=== PATIENT | male | born 1955 | race Caucasian/White ===

== ENCOUNTER 2017-11-06 12:34 | Day surgery (SDC) | payer OTHER, SELFPAY ==
[2017-11-06] VITALS (13 sets, daily range): BP systolic 108–136; BP diastolic 54–85; PULSE 43–56; RESP 16–18; TEMP 36.1–36.3; O2SAT 94–100; BMI 20.8
[2017-11-06 10:12] LABS: Hematocrit 42.4 % (40-54); Hemoglobin 13.9 g/dl (13.0-16.5); Mean Corp Hgb Conc 32.8 g/gl (32-36); Mean Corpuscular Volume 97.5 fL (80-94); Mean Platelet Vol. 10.2 fl (6.2-12.0); Platelet Count 161 K/mm3 (150-450); RBC Distribution Width CV 13.2 % (11.6-14.6); RBC Distribution Width SD 47.3 fl (35.1-43.9); Red Blood Count 4.35 M/mm3 (4.6-6.2); Scan Indicated on CBC? Y/N NO; White Blood Count 5.6 K/mm3 (4.4-11.0)
[2017-11-06 10:33] LABS: Anion Gap 6 (5-15); BUN 19 mg/dL (7-18); BUN/Creat Ratio 17.8 RATIO (10-20); Calcium,Total 9.3 mg/dL (8.5-10.1); Chloride 105 mmol/L (98-107); Creatinine, Serum 1.07 mg/dL (0.70-1.30); EST Glomerular Filtration Rate 74 mL/min (>60); Est Glom Filt Rate - Afr Amer 89 mL/min (>60); Estimated Creatinine Clearance 68.86 ml/min; Glucose 92 mg/dL (74-106); Potassium 4.2 mmol/L (3.5-5.1); Sodium Level 141 mmol/L (136-145); Thyroid Stim Hormone (TSH) 0.68 uIU/mL (0.358-3.74)
--- NOTE | 2017-11-06 11:15 | HERN_PTH ---
PATIENT: CHAN SANTIAGO LOC: [facility] U#:[id number] AGE/SX: 62/M ROOM: RE11/06/[address]: Dr. Mikey Plata MD : [id number] BED: DIS: 11/06/2017 SPEC #: [id number] RECD: 11/06/17 15:17 STATUS: CHERYL GAIL #: [id number] SANDRA: 11/06/17 11:[address]: Mikey Plata DEPT: SURGICAL PATHOLOGY RECD BY: Adal Wang ENTERED: 11/07/17 10:16 SP TYPE: Hernia OTHR DR: Dr. Kemar Arroyo MD Tissues: HERNIA Procedures: Surgery Specimen Level II Surgery Specimen Level III HEADER OPERATION: Hernia, open, inguinal with mesh PRE-OP DIAGNOSIS: Right inguinal hernia TISSUE SUBMITTED: Right inguinal hernia sac and lipoma of cord MICROSCOPIC DIAGNOSIS Right inguinal hernia sac and lipoma of cord: Mesothelial-lined fibroadipose and fibroconnective tissue, consistent with hernia sac with reactive changes. Pieces of mature adipose tissue, consistent with lipoma. MANJULA:harish 11/08/17 MICROSCOPIC DESCRIPTION Slides are reviewed. GROSS DESCRIPTION Received in fixative is one container labeled with the patient's name and designated right inguinal hernia sac and lipoma of cord. The specimen consists of a piece of fibromembranous sac measuring 3 x 2 x 0.8 cm. Sections do not reveal any mass lesion. Also received are two pieces of adipose tissue measuring in aggregate 4 x 3.5 x 1 cm. Sections reveal yellow adipose cut surface without area of hemorrhage, necrosis or cystic degeneration. Security Test Engineer sections are submitted in two cassettes as follows: 1 ? fibromembranous tissue, 2 ? adipose tissue. / MANJULA:harish 11/07/17 TC:5 CPT: 20293, 23965
--- NOTE | 2017-11-06 12:14 | SUR.PREOP ---
pt told about cancelation. Called office- validation consultant at lunch. office will call with rescheduled time. instructed patient to call office by 1500 if no call from them
--- NOTE | 2017-11-06 12:53 | PCM.DC.GS ---
Discharge Diet: Light diet - advance as tolerated - if you have questions about your diet instructions, please talk to you doctor. Discharge Activity: May Not Drive - for 1 week or while taking narcotic pain medicine. May shower in (days): 1 Lifting Restrictions: 10 pounds Call your doctor if your incision/area has: Continuous Slow Oozing, Sudden Increased Bleeding, Increased Pain/ Swelling, Increased Redness, Foul Smelling Discharge Call your doctor if you observe: Fever of 101 or Higher Suture Line Care: Avoid Pulling/Pushing, Avoid Pinching/Bending Additional Dressing/Incision Instructions:: Change or remove dressing in 4 days. Leave steri-strips in place for 1 week. Allergies/Adverse Reactions: Allergies codeine Allergy (Verified 11/05/17 14:36) Unknown Medications to take at Discharge Aspirin 325 mg PO DAILY@0800 05/17/15 Infliximab [Remicade] 05/17/15 Levothyroxine [Synthroid] 100 mcg PO DAILY 05/17/15 Memantine HCl [Namenda Xr] 28 mg PO QHS 05/17/15 Metoprolol Tartrate [Lopressor (beta maddi)] 12.5 mg PO BID 05/17/15 Multivit-Min/Iron Fum/Folic AC [Shiut-Fmedhor-Pxqeiupc Tablet] 1 ea PO DAILY 05/17/15 Omeprazole [Prilosec] 20 mg PO DAILY 05/17/15 Tamsulosin HCl [Flomax] 0.4 mg PO DAILY 05/17/15 traZODone [Desyrel] 100 mg PO QHS 05/17/15 lisinopril 20 mg tablet 20 mg PO QDAY 10/28/17 Hydrocodone Bitart/Apap 5-325 [[place] 5MG-325MG] 1 tablet PO Q6H PRN PRN 2 Days #6 tablet 11/06/17 The following prescriptions were given: Hydrocodone Bitart/Apap 5-325 [[place] 5MG-325MG] 1 tablet PO Q6H PRN PRN 2 Days #6 tablet PRN Reason: Pain Primary Care Physician: Kemar Arroyo MD [Primary Care Provider] - Test Results: Test results from this visit will be discussed in further detail at your follow-up appointment, if applicable. Please Follow Up With: Mikey Plata MD - [phone] When: Call to make an appointment to be seen in about 10 days.
[2017-11-06] MEDS: Cefazolin 2 GM in 0.9% Normal Saline 100 ML IV (12:56)
[2017-11-06] MEDS: Bupivacaine Mpf 0.5% 30 ML VIAL (13:10)
--- NOTE | 2017-11-06 13:55 | PCM.OPRPT ---
Problem List (1) Inguinal hernia of right side without obstruction or gangrene Status: Acute Report of Operation Date of Procedure: 11/06/17 Pre-Operative Diagnosis: Right inguinal hernia Post-Operative Diagnosis: Indirect right inguinal hernia and cord lipoma Surgery/Procedure Performed:: Franklyn right inguinal herniorrhaphy with excision of cord lipoma Description of Surgical Findings:: Timeout and informed consent was obtained. 62-year-old gent was taken out room. Placed on the table. Underwent monitored anesthesia of 2 g given intravenous preoperatively. The right groin was sterilely prepped draped. 1% lidocaine mixed 50-50 with 0.5% Marcaine was used as a local anesthetic. A total of 16 cc was used. Local was instilled. A transverse incision was made in the right groin. Sharp dissection carried down through the substance tissue. Electrocautery was used for hemostasis. Circumferential control was obtained of the cord structures and a Migdalia placed. The external oblique was incised. Dissection was performed at the internal ring until a indirect sac was clearly identified. Hypertrophic cremasteric fibers were dissected free. The sac was dissected free it was high ligated with 3-0 Vicryl the sac was submitted. A cord lipoma was actually also identified in it she was high ligated with a 3-0 Vicryl. Dissection performed overlying the pubic tubercle. The transversalis fascia from the pubic tubercle to the internal ring was approximated running 3-0 Ethibond. A apron cover Bard mesh appreciate mesh lot number [id number] reference #[id number] expiry date 05/29/2022 was utilized. Details were somewhat trimmed it was wrapped around the internal ring was secured to itself with interrupted 3-0 Ethibond the mesh then nicely sat overlying the pubic tubercle direct and indirect. The tails were tucked beneath the external oblique. The mesh was secured in place with multiple interrupted 3-0 Ethibond excellent securement was achieved. The external oblique was approximated with a running 3-0 Vicryl. Skin edges proximate interrupted and running septic or 4-0 Monocryl. Steri-Strips Telfa and OpSite dressings applied. Sponge and instrument and needle counts were reported the surgeon be correct. Blood loss was minimal. Specimens hernia sac and cord lipoma. Drains none. Mikey Plata M.D., F.A.C.S. Type of Anesthesia:: Local MAC Anesthesiologist: Cecilio Alvarez
[2017-11-06] MEDS: HYDROcodone Bitartrate/Apap 5/325 Tablet PO (15:13)
== END 2017-11-06 15:58 | disposition home or self-care (01) ==
LOC: SDC 12:36 → AC 12:36
PROVIDERS: Family Provider Family Medicine; PCP Family Medicine; Visit Provider Surgery
PROC: (CPT 49505; principal; 2017-11-06 11:00)
DX: K40.90 Unilateral inguinal hernia, without obstruction or gangrene, not specified as recurrent (principal); I10 Essential (primary) hypertension; E03.9 Hypothyroidism, unspecified; E06.9 Thyroiditis, unspecified; K50.90 Crohn's disease, unspecified, without complications; M19.90 Unspecified osteoarthritis, unspecified site; K21.9 Gastro-esophageal reflux disease without esophagitis; N40.0 Benign prostatic hyperplasia without lower urinary tract symptoms; Z79.82 Long term (current) use of aspirin; Z79.899 Other long term (current) drug therapy
CPT/HCPCS: 49505; 36415; 80048; 84443; 85027; 88302; 88304; 93005; J7120; C1781; J2405

== ENCOUNTER 2018-01-13 10:31 | Emergency (ER) | payer OTHER, SELFPAY ==
[2018-01-13 10:32] VITALS: BP 146/92; PULSE 67; RESP 18; TEMP 36.6; O2SAT 99; BMI 22.7
--- NOTE | 2018-01-13 10:56 | ED.VISSUMM ---
- ER Visit Summary Date of Service: 01/13/18 Chief Complaint: Difficulty urinating History of Present Illness: The patient is a 62 M states that last week he was having fevers up to 103 and was diagnosed with a urinary tract infection (due to E. coli per him) and placed on Cipro. He is on Remicade for Crohn's disease. He has a history of BPH and takes Flomax and sees [facility] urology 1 time per year. He has never had urinary retention. He states that over the weekend he was only able to urinate small amounts. He states the fevers have resolved. He feels that his bladder does not empty. Physical Examination: Afebrile vital signs stable Gen: Well-nourished well-developed Head: Normocephalic atraumatic Eyes: Perrl EOMI ENT: TMs clear no rhinorrhea moist mucous membranes Neck: Supple no lymphadenopathy no JVD nontender CVS: Regular rate rhythm no murmurs normal S1-S2 Respiratory: No distress clear to auscultation bilaterally chest nontender Abdomen: Soft tender palpation in suprapubic region due to a distended bladder top of bladder palpable 2 cm below umbilicus normal bowel sounds no masses Back: Nontender Extremity: Nontender no edema Skin: Normal color no rash Neuro: alert orientated ?3 CN II-XII intact normal strength sensation reflexes gait cerebellar Psych: Normal affect normal mood Test Results: Bedside ultrasound confirmed urinary retention. CBC BMP and urinalysis were obtained. These were negative. Emergency Department Course and Treatment: Sanon catheter was placed. This will be transitioned to a leg bag. He will follow-up with his urologist later this week. Patient to continue his ciprofloxacin. Impression: 1. Acute urinary retention This note was generated with [employer] dictation software. It may contain incorrect words, spelling, and punctuation that were not noted in review of the chart prior to signing ED Disposition - Plan for ED Patient: Disposition: Home or Assisted Living Chief Complaint: Complaint Instructions: ED Retention Urinary Male Additional Instructions: Please call your urologist to arrange follow-up later this week
--- NOTE | 2018-01-13 11:01 | ED.DCSUM_ITS ---
- ER Visit Summary Date of Service: 01/13/18 Chief Complaint: Difficulty urinating History of Present Illness: The patient is a 62 M states that last week he was having fevers up to 103 and was diagnosed with a urinary tract infection (due to E. coli per him) and placed on Cipro. He is on Remicade for Crohn's disease. He has a history of BPH and takes Flomax and sees [facility] urology 1 time per year. He has never had urinary retention. He states that over the weekend he was only able to urinate small amounts. He states the fevers have resolved. He feels that his bladder does not empty. Physical Examination: Afebrile vital signs stable Gen: Well-nourished well-developed Head: Normocephalic atraumatic Eyes: Perrl EOMI ENT: TMs clear no rhinorrhea moist mucous membranes Neck: Supple no lymphadenopathy no JVD nontender CVS: Regular rate rhythm no murmurs normal S1-S2 Respiratory: No distress clear to auscultation bilaterally chest nontender Abdomen: Soft tender palpation in suprapubic region due to a distended bladder top of bladder palpable 2 cm below umbilicus normal bowel sounds no masses Back: Nontender Extremity: Nontender no edema Skin: Normal color no rash Neuro: alert orientated ?3 CN II-XII intact normal strength sensation reflexes gait cerebellar Psych: Normal affect normal mood Test Results: Bedside ultrasound confirmed urinary retention. CBC BMP and urinalysis were obtained. These were negative. Emergency Department Course and Treatment: Sanon catheter was placed. This will be transitioned to a leg bag. He will follow-up with his urologist later this week. Patient to continue his ciprofloxacin. Impression: 1. Acute urinary retention This note was generated with [employer] dictation software. It may contain incorrect words, spelling, and punctuation that were not noted in review of the chart prior to signing ED Disposition - Plan for ED Patient: Disposition: Home or Assisted Living Chief Complaint: Complaint Instructions: ED Retention Urinary Male Additional Instructions: Please call your urologist to arrange follow-up later this week
[2018-01-13 11:14] LABS: Absolute Lymphocyte Count 1.57 X10^3/ul (0.83-4.51); Basophil# 0.03 X10^3/uL; Basophil% 0.4 % (0-1); Eosinophil# 0.08 X10^3/uL; Eosinophils% 1.1 % (0-5); Hematocrit 40.1 % (40-54); Hemoglobin 13.2 g/dl (13.0-16.5); Lymphocyte # 1.57 X10^3/ul (4.0); Mean Corp Hgb Conc 32.9 g/gl (32-36); Mean Corpuscular Hgb 31.5 pg (27.0-32.0); Mean Corpuscular Volume 95.7 fL (80-94); Monocyte# 0.75 X10^3/uL; Monocyte% 10.1 % (0-10); Neutrophil # 4.97 X10^3/uL (2.7-7.7); Neutrophil % 66.6 % (47-70); Platelet Count 217 K/mm3 (150-450); RBC Distribution Width SD 45.6 fl (35.1-43.9); Red Blood Count 4.19 M/mm3 (4.6-6.2); White Blood Count 7.5 K/mm3 (4.4-11.0)
[2018-01-13 11:15] LABS: POSITIVE COUNT NO; POSITIVE DIFFERENTIAL NO; POSITIVE MORPHOLOGY NO
[2018-01-13 11:28] LABS: Anion Gap 6 (5-15); BUN 13 mg/dL (7-18); BUN/Creat Ratio 12.4 RATIO (10-20); Calcium,Total 9.3 mg/dL (8.5-10.1); Chloride 106 mmol/L (98-107); Creatinine, Serum 1.05 mg/dL (0.70-1.30); EST Glomerular Filtration Rate 76 mL/min (>60); Est Glom Filt Rate - Afr Amer 91 mL/min (>60); Estimated Creatinine Clearance 74.39 ml/min; Glucose 95 mg/dL (74-106); Potassium 3.8 mmol/L (3.5-5.1); Sodium Level 140 mmol/L (136-145)
[2018-01-13 11:32] LABS: Bacteria 0 SEEN /hpf (None Seen); Mucous, Urine 0 SEEN /hpf (<or=2+); Squamous Epithelial Cells - UA 0 SEEN /hpf (0-5)
[2018-01-13 11:35] LABS: Color, Urine Yellow (Yellow); Glucose, Dipstick Normal (Normal); Ketone-Dipstick Negative (Negative); Leukocyte Esterase-Dipstick 25 /ul (Negative); Nitrite-Dipstick Negative (Negative); Occult Blood-Urine 10 /ul (Negative); Protein-Dipstick Negative (Negative); Specific Gravity, Urine 1.005 (1.002-1.030); Urine Bilirubin Dipstick Negative (Negative); Urine Clarity Sl. Cloudy (Clear); Urine Urobilinogen Normal (Normal); Urine pH 6.5 (5.0 - 8.0)
[2018-01-13 11:41] LABS: Red Blood Cells-Urine 0-5 SEEN /hpf (0-5); White Blood Cells 0-5 SEEN /hpf (0-5)
[2018-01-13 12:33] VITALS: BP 155/95; PULSE 67; RESP 14; O2SAT 98
== END 2018-01-13 12:42 | disposition home or self-care (01) ==
PROVIDERS: Emergency Provider Emergency Medicine; Family Provider Family Medicine; PCP Family Medicine
DX: N40.1 Benign prostatic hyperplasia with lower urinary tract symptoms (principal); R33.8 Other retention of urine; N39.0 Urinary tract infection, site not specified; K50.90 Crohn's disease, unspecified, without complications; F03.90 Unspecified dementia, unspecified severity, without behavioral disturbance, psychotic disturbance, mood disturbance, and anxiety; Z79.82 Long term (current) use of aspirin; Z79.899 Other long term (current) drug therapy
CPT/HCPCS: 51702; 80048; 81001; 85025; 99284; A4216

== ENCOUNTER 2019-12-28 19:50 | Emergency (ER) | payer MEDICARE, OTHER, SELFPAY ==
[2019-12-28 19:52] VITALS: BP 142/86; PULSE 64; RESP 20; TEMP 36; O2SAT 100; BMI 24.3
--- NOTE | 2019-12-28 20:17 | EKG12_ITS ---
Test Reason : DOUBLE VISION Blood Pressure : / mmHG Vent. Rate : 055 BPM Atrial Rate : 055 BPM P-R Int : 122 ms QRS Dur : 098 ms QT Int : 414 ms P-R-T Axes : 049 002 041 degrees QTc Int : 396 ms Sinus bradycardia Otherwise normal ECG Confirmed by VÍCTOR TIRADO, DENA ([id number]), industrial editor [employer] ([id number]) on 12/30/2019 8:33:49 AM Referred By: KEIRA Confirmed By:EDNA RENEE MD
--- NOTE | 2019-12-28 20:18 | CT_ITS ---
STUDY: CT BRAIN WITHOUT CONTRAST REASON FOR EXAM: Male, 64 years old. Double vision, tingling in the right arm funny feeling in the chest on Saturday. RADIATION DOSAGE (If Supplied By Facility): CTDIvol = ( 44.99 ) mGy, DLP = ( 796.11 ) mGycm TECHNIQUE: Transaxial CT imaging of the brain was performed without administration of intravenous contrast material. Individualized dose optimization techniques were used for this CT. COMPARISON: No relevant priors. FINDINGS: Normal soft tissue structures. Normal calvarium. Normal size ventricles and extra-axial spaces for the patient''s age. Normal white matter tracts of the cerebral hemispheres. Normal basal ganglia and thalami. Normal brainstem. Normal cerebellum. There is no intracranial hemorrhage. There are no findings of an acute ischemic infarction. Minimal mucoperiosteal reaction in the right maxillary sinus. CT/Brain/Head without Contrast IMPRESSION: No acute intracranial or calvarial abnormality. Electronically Signed: Isidoro Martin DO at 21:01 EDT Tel [phone], Service support ,
[2019-12-28 20:30] VITALS: BP 141/77; PULSE 57; RESP 17; O2SAT 97
[2019-12-28 20:54] LABS: Absolute Lymphocyte Count 1.94 X10^3/uL (0.83-4.51); Absolute Neutrophil Count 3.5 X10^3/uL (2.0-7.7); Basophil# 0.03 X10^3/uL; Basophil% 0.5 % (0-1); Eosinophil# 0.07 X10^3/uL; Eosinophils% 1.1 % (0-5); Hematocrit 40.3 % (40-54); Hemoglobin 13.6 g/dL (13.0-16.5); Lymphocyte # 1.94 X10^3/ul (4.0); Lymphocyte % 30.9 % (19-41); Mean Corp Hgb Conc 33.7 g/dL (32-36); Mean Corpuscular Hgb 32.2 pg (27.0-32.0); Mean Corpuscular Volume 95.5 fL (80-94); Mean Platelet Vol. 11.1 fl (6.2-12.0); Monocyte# 0.71 X10^3/uL; Monocyte% 11.3 % (0-10); NRBC Flagged by Analyzer 0 % (0-5); Neutrophil # 3.51 X10^3/uL (2.7-7.7); Platelet Count 165 K/mm3 (150-450); RBC Distribution Width CV 13.4 % (11.6-14.6); RBC Distribution Width SD 47.6 fl (35.1-43.9); Red Blood Count 4.22 M/mm3 (4.6-6.2); White Blood Count 6.3 K/mm3 (4.4-11.0)
--- NOTE | 2019-12-28 21:11 | ED.VISSUMM ---
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 He reports that today he has vertical double vision at a distance of approximate 20 feet from his left eye. His near vision is normal. Is never had anything like this before. He denies any pain to his eye. No discharge from his eye. He does report that he had contacts remove them and that this did not improve this. Patient denies any foreign body sensation. Patient reports that 3 days ago while he was riding the mower for approximately 1 hour he developed a vibrating sensation in his chest and right arm that lasted approximately 15 minutes. He was not short of breath with this. He denies any nausea, vomiting, diaphoresis. He has not had this since. He denies any chest pain with exertion or change in dyspnea exertion in the past month. Patient denies any neurologic symptoms. He does not have a headache or vertigo. No numbness or weakness. No slurred speech. Physical Examination: Vitals: Stable. Afebrile. General: Well-nourished and well-developed. Head: Normocephalic atraumatic. Neck: Supple, no lymphadenopathy. No JVD. Nontender. Cardiovascular: Regular rate and rhythm. No murmurs. Respiratory: No respiratory distress. Clear to auscultation bilaterally. Abdominal: Soft, nontender, nondistended, normal bowel sounds. No guarding, rebound, or peritoneal signs. Back: Nontender. Extremities: Nontender, no edema. Skin: Normal color, no rash. Neurologic: Alert and oriented ?3. Cranial nerves II through XII are intact. Normal strength and sensation. Psych: Normal affect. Test Results: EKG is sinus bradycardia at [address] changes. CBC shows monocytes of 11. CT brain shows no acute disease. Chem-7 shows a glucose 107, BUN of 26, creatinine 1.4. Troponin is less than 0.015. Emergency Department Course and Treatment: Patient rested comfortably while in the emergency department. Treatment Plan: Patient was discussed with Dr. Whitley. With the monocular diplopia he likely has changes to his cornea from his contacts. He will be discharged instructions to follow-up tomorrow with Dr. Whitley for another exam. Instructed to follow-up his primary care physician in 3 to 5 days regarding his chest pain. Return to the emergency department for any worsening symptoms. Disposition: To home in improved and stable condition. Impression: 1. Atypical chest pain. 2. Left monocular diplopia. 3. DANIA score of 2. This note was generated with [employer] dictation software. It may contain incorrect words, spelling, and punctuation that were not noted in review of the chart prior to signing ED Disposition - Plan for ED Patient: Instructions: ED Corneal Injury Contact Lens, ED Chest Pain Atypical Unkn Cause Referrals: Kemar Arroyo MD [Primary Care Provider] - 3-5 Days Billy Whitley MD [STAFF PHYSICIAN] - 1 Day for another exam
[2019-12-28 21:17] LABS: Anion Gap 4 (5-15); BUN 26 mg/dL (7-18); BUN/Creat Ratio 18.6 RATIO (10-20); Calcium,Total 9.5 mg/dL (8.5-10.1); Chloride 103 mmol/L (98-107); EST Glomerular Filtration Rate 54 mL/min (>60); Est Glom Filt Rate - Afr Amer 65 mL/min (>60); Estimated Creatinine Clearance 55.28 ml/min; Glucose 107 mg/dL (74-106); Potassium 3.5 mmol/L (3.5-5.1); Sodium Level 138 mmol/L (136-145)
[2019-12-28 21:41] VITALS: BP 115/73; PULSE 80; RESP 16; O2SAT 99
== END 2019-12-28 21:46 | disposition home or self-care (01) ==
LOC: ED 20:59
PROVIDERS: Emergency Provider Emergency Medicine; PCP Family Medicine
DX: R07.89 Other chest pain (principal); H53.2 Diplopia; I10 Essential (primary) hypertension; Z79.82 Long term (current) use of aspirin; Z79.899 Other long term (current) drug therapy
CPT/HCPCS: 70450; 80048; 84484; 85025; 93005; 99285; A4216

== ENCOUNTER 2020-04-28 14:36 | Inpatient (IN) | payer MEDICARE, OTHER, SELFPAY ==
[2020-04-28] VITALS (7 sets, daily range): BP systolic 105–138; BP diastolic 64–75; PULSE 85–104; RESP 16–19; TEMP 37.3–37.7; O2SAT 94–99; BMI 22.3; BMI 22.8; BMI 22.9
--- NOTE | 2020-04-28 14:55 | RAD_ITS ---
STUDY: X-RAY CHEST REASON FOR EXAM: Male, 64 years old. FEVER TECHNIQUE: Single AP portable view of the chest. COMPARISON: Comparison is made with prior examination dated 05/17/2015. FINDINGS: The lungs are clear and expanded. Scattered calcified granulomas. There is no demonstrated pleural abnormality. Normal size heart. Normal mediastinum and martita. Normal visualized pulmonary arteries. Normal visualized aortic arch and descending thoracic aorta. Normal visualized thoracic spine. Normal visualized ribs, clavicles, and shoulders. There is no demonstrated abnormality of the visualized soft tissue structures of the upper abdomen. RAD/Chest 1 View (Portable) IMPRESSION: No acute abnormality is seen. Electronically Signed: Power Knox MD at 15:47 EST , Service support ,
--- NOTE | 2020-04-28 14:58 | ED.VISSUMM ---
- ER Visit Summary Date of Service: 04/28/20 Chief Complaint: Fever History of Present Illness: The patient is a 64 M presenting with fever, fatigue, urinary complaints. Patient has been feeling ill for the past 2 days. He was seen by his primary care physician. He was found to have a UTI and was started on antibiotics. He had blood work drawn yesterday and today. Yesterday he had a white count 18, today it increased to 22. He was sent to the ED by his primary care physician for further evaluation. Denies known exposure to Covid. Physical Examination: Vitals are stable. Temperature 99.1, heart rate 104. Pulse ox 99% on room air. Alert no acute distress. HEENT exam is unremarkable. Neck is supple. Lungs are clear and equal bilaterally. Heart is regular tachycardic Abdomen is soft nontender nondistended. Extremities are unremarkable. Skin is warm and dry. No focal neurologic deficit. Remainder of exam is unremarkable. Emergency Department Course and Treatment: Patient was given IV fluids. CBC shows white count 21.2, platelet 128. Chemistries show sodium 130. Urinalysis positive for leukocytes. Urine culture was sent. Lactic acid is normal. Covid is negative. Patient was given Rocephin IV. Discussed with hospitalist for admission. Disposition: Admission Impression: Sepsis, UTI This note was generated with [email or web address] dictation software. It may contain incorrect words, spelling, and punctuation that were not noted in review of the chart prior to signing ED Disposition - Plan for ED Patient: Referrals: Kemar Arroyo MD [Primary Care Provider] -
[2020-04-28 15:09] LABS: Color, Urine Yellow (Yellow); Glucose, Dipstick Normal (Normal); Ketone-Dipstick 15 mg/dl (Negative); Leukocyte Esterase-Dipstick 25 /ul (Negative); Nitrite-Dipstick Negative (Negative); Occult Blood-Urine 150 /ul (Negative); Protein-Dipstick Negative (Negative); Urine Bilirubin Dipstick Negative (Negative); Urine Clarity Clear (Clear); Urine Urobilinogen Normal (Normal)
[2020-04-28 15:23] LABS: Basophil# 0.04 X10^3/uL; Hematocrit 38.5 % (40-54); Hemoglobin 13.2 g/dL (13.0-16.5); Mean Corp Hgb Conc 34.3 g/dL (32-36); Mean Corpuscular Hgb 32.4 pg (27.0-32.0); Mean Corpuscular Volume 94.6 fL (80-94); Mean Platelet Vol. 10.2 fl (6.2-12.0); Monocyte# 1.83 X10^3/uL; NRBC Flagged by Analyzer 0 % (0-5); POSITIVE DIFFERENTIAL YES; POSITIVE MORPHOLOGY YES; Platelet Count 128 K/mm3 (150-450); RBC Distribution Width CV 12.7 % (11.6-14.6); RBC Distribution Width SD 44.3 fl (35.1-43.9); Red Blood Count 4.07 M/mm3 (4.6-6.2); White Blood Count 21.2 K/mm3 (4.4-11.0)
[2020-04-28 15:27] LABS: Differential Indicated SCAN CRITERIA MET; Eosinophil# 5.01 X10^3/uL
[2020-04-28] MEDS: 0.9% Normal Saline 1,000 ML 1000 ML IV (15:36)
[2020-04-28 15:46] LABS: ALB/GLOB Ratio 0.8 RATIO (0.9-2.4); AST(SGOT) 17 U/L (15-37); Alanine Aminotransfer ALT/SGPT 23 U/L (16-61); Albumin, Serum 3.2 g/dL (3.2-5.0); Alkaline Phosphatase 58 U/L (45-117); Anion Gap 6 (5-15); BUN 16 mg/dL (7-18); BUN/Creat Ratio 12.8 RATIO (10-20); Calcium,Total 9.4 mg/dL (8.5-10.1); Chloride 95 mmol/L (98-107); Creatinine, Serum 1.25 mg/dL (0.70-1.30); EST Glomerular Filtration Rate 61 mL/min (>60); Est Glom Filt Rate - Afr Amer 74 mL/min (>60); Estimated Creatinine Clearance 59.67 ml/min; Globulin 3.8 g/dL (2.2-4.2); Glucose 107 mg/dL (74-106); Potassium 3.5 mmol/L (3.5-5.1); Sodium Level 130 mmol/L (136-145)
[2020-04-28 15:52] LABS: Lactic Acid 1.4 mmol/L (0.4-1.9)
[2020-04-28 16:02] LABS: Anisocytosis RARE; Macrocytosis RARE; Platelet Estimate SLT DEC (ADEQ); Red Cell Morphology N CHROM NORMAL (NORM C&C)
[2020-04-28] MEDS: Ceftriaxone 1 GM/50 ML BAG IV (16:36)
--- NOTE | 2020-04-28 17:20 | PCM.HP.STD ---
History of Present Illness Date of Admission: 04/28/20 Chief Complaint: Chills The patient is a 64 year old M with a PMH as below who presents to the hospital after his doctor sent him in from the office. He was diagnosed with a UTI yesterday and was started on Cipro. The UA from the office demonstrated moderate leukocyte esterase and positive nitrates however there was no micro associated with that UA unfortunately. However today he came in and had blood work which demonstrated a higher white count than what he had yesterday so his doctor was concerned and sent him into the ER. In the ER his vital signs are stable, he was slightly tachycardic to 104 which improved with fluid resuscitation, and his white count is 21. He states that his main symptom at home was chills. UA here demonstrated negative nitrates and 25 leukocyte esterase. A urine culture is also pending here however will likely need to call Dr. George office in the morning to find out the results of the urine culture. Past Medical History Past Medical History (Chronic Problems): Chronic Problems (Last Reviewed 10/28/17 @ 15:16 by Anya Hunter) BPH (benign prostatic hyperplasia) (Chronic) Hypothyroidism (Chronic) Hypertension (Chronic) Medical History: Medical History (Last Reviewed 10/28/17 @ 15:16 by Anya Hunter) Chest pain (Acute) R07.9 BPH (benign prostatic hyperplasia) (Chronic) N40.0 Hypothyroidism (Chronic) E03.9 Hypertension (Chronic) I10 Dementia (Suspected) F03.90 Allergies codeine Allergy (Verified 04/28/20 16:44) It affected my breathing Home Medications: Ambulatory Orders Medication Instructions Recorded Levothyroxine [Synthroid] 100 mcg PO DAILY 05/17/15 Metoprolol Tartrate [Lopressor 12.5 mg PO BID 05/17/15 (beta maddi)] Omeprazole [Prilosec] 20 mg PO DAILY 05/17/15 Tamsulosin HCl [Flomax] 0.4 mg PO QHS 05/17/15 traZODone [Desyrel] 100 mg PO QHS 05/17/15 Losartan Potassium [Cozaar] 25 mg PO DAILY 12/28/19 Oxybutynin [Ditropan] 5 mg PO TID 12/28/19 Aspirin E.C. [Ecotrin] 81 mg PO DAILY@0800 04/28/20 Atorvastatin Calcium 10 mg PO DAILY 04/28/20 Ciprofloxacin [Cipro] 500 mg PO BID 04/28/20 Memantine HCl [Namenda Xr] 28 mg PO DAILY 04/28/20 Multivitamins,Therapeutic 1 tab PO DAILY 04/28/20 [Multivitamin] hydroCHLOROthiazide 12.5 mg PO DAILY 04/28/20 [Hydrochlorothiazide] Surgical History: Surgical History (Last Updated 11/18/17 @ 13:16 by Anya Hunter) Inguinal hernia of right side without obstruction or gangrene (Acute) K40.90 history of left index finger (Acute) H/O left inguinal hernia repair (Acute) Z98.890, Z87.19 H/O partial thyroidectomy (Acute) Z98.890 S/P tonsillectomy and adenoidectomy (Acute) Z90.89 Surgical History: tonsillectomy, - Psychiatric History: - Smoking Status: Never smoker Alcohol: None Drugs: None - *Family History Maternal Family History: Family History (Last Updated 10/28/17 @ 15:23 by Anya Hunter) Mother Diabetes Heart disease CAD (coronary artery disease) Kidney disease Thyroid disorder Father Cancer Heart disease Hypertension History Items: COPD, Diabetes Paternal Family History: Family History (Last Updated 10/28/17 @ 15:23 by Anya Hunter) Mother Diabetes Heart disease CAD (coronary artery disease) Kidney disease Thyroid disorder Father Cancer Heart disease Hypertension History Items: Hypertension Sibling Family History: Family History (Last Updated 10/28/17 @ 15:23 by Anya Hunter) Mother Diabetes Heart disease CAD (coronary artery disease) Kidney disease Thyroid disorder Father Cancer Heart disease Hypertension History Items: Heart Disease - At age 59 Review of Systems Constitutional: Reports: Chills. Denies: Fever HEENT: Denies: Head Aches, Sinus Congestion, Sinus Drainage Cardiovascular: Denies: Chest Pain, Palpitations Respiratory: Denies: Cough, Shortness of breath at rest, Sputum production Gastrointestinal: Denies: Abdominal Pain, Nausea, Vomiting Genitourinary: Denies: Dysuria Musculoskeletal: Denies: Joint Pain, Joint Tenderness Skin: Denies: Rash, Wounds Neurological: Denies: Numbness, Tingling, Focal weakness Psychiatric: Denies: Anxiety, Depression Hematologic/ Lymphatic: Denies: Easy Bruising, Easy Bleeding VTE Information - Inpt Only VTE Present on Admission: No - Physical Exam Vitals/I&O's: Vital Signs Temp Pulse Resp BP Pulse Ox 99.2 F H 85 18 127/75 H 99 04/28/20 17:02 04/28/20 17:02 04/28/20 17:02 04/28/20 17:02 04/28/20 17:02 Oxygen Delivery Method Room Air Weight: 164 lb 3.91 oz Body Mass Index (BMI) 22.8 Intake and Output for Last 24 Hours 04/26/20 04/27/20 04/28/20 23:59 23:59 23:59 Intake Total 1000 / 1000 Balance 1000 / 1000 General: Alert, Oriented x3, Cooperative, No apparent distress HEENT: Atraumatic, PERRLA, EOMI, Normocephalic Oral: Dry Mucosa Neck: Supple, No JVD Lungs: Clear to auscultation, Normal air movement, No rhonchi, No wheeze, No rales Cardiovascular: Regular rate, Regular Rhythm, Normal S1, Normal S2, No murmurs Abdomen: Soft, Non Tender, Non-Distended, No Hepato-splenomegaly Extremities: No edema, Capillary Refill Less than 3 Seconds Skin: No rashes, No breakdown Neurological: Neuro grossly intact, Sensory exam intact to light touch and pain Psych/Mental Status: Normal Affect, Appropriate Microbiology Past 72 Hours 04/28/20 15:12 Mucosa - Nose SARS-CoV-2 Antigen (Rapid) - Final Laboratory Results 04/28/20 14:45: Urine Color Yellow, Urine Clarity Clear, Urine pH 6.0, Ur Specific [place] 1.010, Urine Protein Negative, Urine Glucose (UA) Normal, Urine Ketones 15 H, Urine Occult Blood 150 H, Urine Nitrite Negative, Urine Bilirubin Negative, Urine Urobilinogen Normal, Ur Leukocyte Esterase 25 H 04/28/20 15:12: WBC 21.2 H, RBC 4.07 L, Hgb 13.2, Hct 38.5 L, MCV 94.6 H, MCH 32.4 H, MCHC 34.3, RDW Std Deviation 44.3 H, RDW Coeff of Kelli 12.7, Plt Count 128 L, MPV 10.2, Immature Gran % (Auto) 0.700, Neut % (Auto) 61.9, Lymph % (Auto) 5.0 L, [place] % (Auto) 8.6, Eos % (Auto) 23.6 H, Baso % (Auto) 0.2, Absolute Neuts (auto) 13.2 H, Absolute Lymphs (auto) 1.06, Nucleated RBC % 0, Differential Comment SEE COMMENTS, Diff Path Review May foll, Platelet Estimate SLT DEC, RBC Morphology N CHROM, Anisocytosis RARE, Macrocytosis RARE 04/28/20 15:12: Sodium 130 L, Potassium 3.5, Chloride 95 L, Carbon Dioxide 29.0, Anion Gap 6, BUN 16, Creatinine 1.25, Estim Creat Clear Calc 59.67, Est GFR (MDRD) Af Amer 74, Est GFR (MDRD) Non-Af 61, BUN/Creatinine Ratio 12.8, Glucose 107 H, Calcium 9.4, Total Bilirubin 1.60 H, AST 17, ALT 23, Alkaline Phosphatase 58, Total Protein 7.0, Albumin 3.2, Globulin 3.8, Albumin/Globulin Ratio 0.8 L 04/28/20 15:12: Lactic Acid 1.4 Current Medications Sodium Chloride () 250 mls @ 15 mls/hr IV .[id number] PRN PRN Reason: Additional IVPB Infusion Sodium Chloride (0.9% Saline Lock 10 Ml Syringe) 10 - 40 ml IV UD PRN PRN Reason: SALINE FLUSH Assessment/Plan All Active Problems (Last Reviewed 10/28/17 @ 15:16 by Anya Hunter) Inguinal hernia of right side without obstruction or gangrene (Acute) history of left index finger (Acute) H/O left inguinal hernia repair (Acute) H/O partial thyroidectomy (Acute) S/P tonsillectomy and adenoidectomy (Acute) Chest pain (Acute) 1. Sepsis secondary to UTI -Had an increase in his white count and so his doctor sent him into the hospital, demonstrated failure of outpatient management -We will follow up her own urine culture however will try to attempt to get records from Dr. Arroyo's office in the morning -Continue with Rocephin -He received, 1 L of IV fluids in the ER, will place him on IV fluids while here -Blood cultures are pending 2. HTN/HLD -Blood pressure is stable -Continue with his Lipitor, aspirin, losartan, hydrochlorothiazide, metoprolol 3. Hypothyroidism status post partial thyroidectomy -Surgery was for nodules -Stable -Continue with Synthroid 4. BPH -Stable -Continue with Flomax 5. GERD -Stable -Continue PPI DVT: Lovenox Inpatient E&M: 91914 Init Hosp L2
[2020-04-28] MEDS: 0.9% Normal Saline 1,000 ML 100 ML IV (18:14)
[2020-04-29] MEDS: 0.9% Normal Saline 1,000 ML 100 ML IV ×3 (04:15→21:19)
[2020-04-29 05:40] VITALS: BP 111/71; PULSE 98; RESP 16; TEMP 37.2; O2SAT 96
[2020-04-29 06:44] LABS: Absolute Lymphocyte Count 1.18 X10^3/uL (0.83-4.51); Absolute Neutrophil Count 13.9 X10^3/uL (2.0-7.7); Basophil# 0.03 X10^3/uL; Basophil% 0.2 % (0-1); Eosinophil# 0.01 X10^3/uL; Eosinophils% 0.1 % (0-5); Hematocrit 35.2 % (40-54); Hemoglobin 12.1 g/dL (13.0-16.5); Lymphocyte # 1.18 X10^3/ul (4.0); Lymphocyte % 7.1 % (19-41); Mean Corp Hgb Conc 34.4 g/dL (32-36); Mean Corpuscular Hgb 32.4 pg (27.0-32.0); Mean Corpuscular Volume 94.4 fL (80-94); Mean Platelet Vol. 10.3 fl (6.2-12.0); Monocyte# 1.45 X10^3/uL; Monocyte% 8.7 % (0-10); NRBC Flagged by Analyzer 0 % (0-5); Neutrophil # 13.92 X10^3/uL (2.7-7.7); Neutrophil % 83.2 % (47-70); Platelet Count 132 K/mm3 (150-450); RBC Distribution Width CV 12.8 % (11.6-14.6); RBC Distribution Width SD 44.7 fl (35.1-43.9); Red Blood Count 3.73 M/mm3 (4.6-6.2); White Blood Count 16.7 K/mm3 (4.4-11.0)
[2020-04-29 07:07] LABS: Anion Gap 7 (5-15); BUN 15 mg/dL (7-18); Calcium,Total 8.5 mg/dL (8.5-10.1); Chloride 104 mmol/L (98-107); Creatinine, Serum 1.15 mg/dL (0.70-1.30); EST Glomerular Filtration Rate 68 mL/min (>60); Est Glom Filt Rate - Afr Amer 82 mL/min (>60); Estimated Creatinine Clearance 66.58 ml/min; Glucose 96 mg/dL (74-106); Potassium 3.7 mmol/L (3.5-5.1); Sodium Level 137 mmol/L (136-145)
[2020-04-29 08:37] VITALS: BP 124/72; PULSE 103; RESP 18; TEMP 37.5; O2SAT 97
[2020-04-29] MEDS: Acetaminophen 325 MG Tablet 650 MG PO (08:43)
[2020-04-29 08:45] VITALS: PULSE 106
[2020-04-29] MEDS: Enoxaparin 40 MG/0.4 ML Syringe SC (10:25)
[2020-04-29] MEDS: Ceftriaxone 1 GM/50 ML BAG IV (10:25)
--- NOTE | 2020-04-29 10:34 | PN_ITS ---
Subjective: Patient seen and examined. He was admitted with complaint of UTI with fever and chills under 3 months with sepsis due to UTI. He complains of feeling a bit cold and clammy today, and mild dysuria, but otherwise has no complaints. He remains tachycardic this morning, and wbc is down to 16.7. Vitals/I&O's: Vital Signs Temp Pulse Resp BP Pulse Ox 99.5 F H 103 H 18 124/72 H 97 04/29/20 08:37 04/29/20 08:37 04/29/20 08:37 04/29/20 08:37 04/29/20 08:37 Oxygen Delivery Method Room Air Weight: 164 lb 3.91 oz Body Mass Index (BMI) 22.8 Intake and Output for Last 24 Hours 04/27/20 04/28/20 04/29/20 23:59 23:59 23:59 Intake Total 1050 / 1250 2623.33 / 2623.33 Output Total 250 / 875 1999 / 1999 Balance 800 / 375 623.33 / 623.33 General: Alert, Oriented x3, Cooperative, No apparent distress HEENT: Atraumatic, PERRLA, EOMI, Normocephalic Oral: Moist Mucosa Neck: Supple, No JVD, Negative Carotid Bruits Lungs: Clear to auscultation, Normal air movement Cardiovascular: Normal S1, Normal S2, No murmurs, Tachycardic Abdomen: Bowel Sounds Present, Soft, Non Tender Extremities: No edema, Capillary Refill Less than 3 Seconds Skin: No rashes, No breakdown Musculoskeletal: No Tenderness to Palpation of Joints or Extremities Neurological: Cranial nerves II-XII grossly intact, Neuro grossly intact, Motor Exam 5/5 strength throughout Psych/Mental Status: Normal Affect, Appropriate, Alert and oriented to time, place, person, mood and affect Microbiology Past 72 Hours 04/28/20 15:12 Mucosa - Nose SARS-CoV-2 Antigen (Rapid) - Final Laboratory Results 04/28/20 14:45: Urine Color Yellow, Urine Clarity Clear, Urine pH 6.0, Ur Specific [place] 1.010, Urine Protein Negative, Urine Glucose (UA) Normal, Urine Ketones 15 H, Urine Occult Blood 150 H, Urine Nitrite Negative, Urine Bilirubin Negative, Urine Urobilinogen Normal, Ur Leukocyte Esterase 25 H 04/28/20 15:12: WBC 21.2 H, RBC 4.07 L, Hgb 13.2, Hct 38.5 L, MCV 94.6 H, MCH 32.4 H, MCHC 34.3, RDW Std Deviation 44.3 H, RDW Coeff of Kelli 12.7, Plt Count 128 L, MPV 10.2, Immature Gran % (Auto) 0.700, Neut % (Auto) 61.9, Lymph % (Auto) 5.0 L, [place] % (Auto) 8.6, Eos % (Auto) 23.6 H, Baso % (Auto) 0.2, Absolute Neuts (auto) 13.2 H, Absolute Lymphs (auto) 1.06, Nucleated RBC % 0, Differential Comment SEE COMMENTS, Diff Path Review July foll, Platelet Estimate SLT DEC, RBC Morphology N CHROM, Anisocytosis RARE, Macrocytosis RARE 04/28/20 15:12: Sodium 130 L, Potassium 3.5, Chloride 95 L, Carbon Dioxide 29.0, Anion Gap 6, BUN 16, Creatinine 1.25, Estim Creat Clear Calc 59.67, Est GFR (MDRD) Af Amer 74, Est GFR (MDRD) Non-Af 61, BUN/Creatinine Ratio 12.8, Glucose 107 H, Calcium 9.4, Total Bilirubin 1.60 H, AST 17, ALT 23, Alkaline Phosphatase 58, Total Protein 7.0, Albumin 3.2, Globulin 3.8, Albumin/Globulin Ratio 0.8 L 04/28/20 15:12: Lactic Acid 1.4 04/29/20 06:34: WBC 16.7 H, RBC 3.73 L, Hgb 12.1 L, Hct 35.2 L, MCV 94.4 H, MCH 32.4 H, MCHC 34.4, RDW Std Deviation 44.7 H, RDW Coeff of Kelli 12.8, Plt Count 132 L, MPV 10.3, Immature Gran % (Auto) 0.700, Neut % (Auto) 83.2 H, Lymph % (Auto) 7.1 L, [place] % (Auto) 8.7, Eos % (Auto) 0.1, Baso % (Auto) 0.2, Absolute Neuts (auto) 13.9 H, Absolute Lymphs (auto) 1.18, Nucleated RBC % 0 04/29/20 06:34: Sodium 137, Potassium 3.7, Chloride 104, Carbon Dioxide 26.0, Anion Gap 7, BUN 15, Creatinine 1.15, Estim Creat Clear Calc 66.58, Est GFR (MDRD) Af Amer 82, Est GFR (MDRD) Non-Af 68, BUN/Creatinine Ratio 13.0, Glucose 96, Calcium 8.5 Diagnostic Data Chest X-Ray 04/28/20 14:55 IMPRESSION: No acute abnormality is seen. Electronically Signed: Power Knox MD at 15:47 EST , Service support , Current Medications Acetaminophen (Acetaminophen 325 Mg Tablet) 650 mg PO Q6H PRN PRN PRN Reason: Pain Score 1-10/Temp > 100.7 F Last Admin: 04/29/20 08:43 Dose: 650 mg Documented by: Enoxaparin Sodium (Enoxaparin 40 Mg/0.4 Ml Syringe) 40 mg SC DAILY [facility] Last Admin: 04/29/20 10:25 Dose: 40 mg Documented by: Sodium Chloride () 250 mls @ 15 mls/hr IV .[id number] PRN PRN Reason: Additional IVPB Infusion Sodium Chloride () 1,000 mls @ 100 mls/hr IV .Q10H [facility] Last Infusion: 04/29/20 10:29 Dose: 0 mls/hr Documented by: Ceftriaxone Sodium (Rocephin) 1 gm in 50 mls @ 100 mls/hr IV Q24 [facility] Last Admin: 04/29/20 10:25 Dose: 100 mls/hr Documented by: Melatonin (Melatonin 3 Mg Tablet) 3 mg PO QHS PRN PRN PRN Reason: INSOMNIA Nutritional Formula (Lactose Free) (Ensure Enlive 120 Ml Liquid) 120 ml PO 4X/DAY [facility] Last Admin: 04/29/20 10:25 Dose: 120 ml Documented by: Ondansetron HCl (Ondansetron 4 Mg/2 Ml Vial) 4 mg IV Q8H PRN PRN PRN Reason: NAUSEA/VOMITING Sodium Chloride (0.9% Saline Lock 10 Ml Syringe) 10 - 40 ml IV UD PRN PRN Reason: SALINE FLUSH STROKE Vital Signs/Narrative: Vital Signs Temp Pulse Resp BP Pulse Ox 04/29/20 08:37 99.5 F H 103 H 18 124/72 H 97 Medical Necessity - Tobacco Use Smoking Status: Never smoker Assessment/Plan All Active Problems (Last Reviewed 10/28/17 @ 15:16 by Anya Hunter) Inguinal hernia of right side without obstruction or gangrene (Acute) history of left index finger (Acute) H/O left inguinal hernia repair (Acute) H/O partial thyroidectomy (Acute) S/P tonsillectomy and adenoidectomy (Acute) Chest pain (Acute) #Sepsis due to UTI * wbc is down to 16.7 today. * on IV rocephin * encourage oral intake, and stop IVF * blood and urine cultures pending * urine culture done in PCP's office; per nurse, she called this morning, and cultures are still pending. * #Hypertension: on HCTZ and metoprolol #Hyperlipidemia: on statin #Hypothyroidism s/o partial thyroidectomy * on synthroid * #History of BPH: on flomax #GERD: on PPI DVT prophylaxis: lovenox Inpatient E&M: 10219 Subs Hosp L2
[2020-04-29 11:19] LABS: Lymphocyte 10 % (19-41); Monocyte 4 % (0-10); Neutrophil-Band 3 % (0-5); Neutrophil-Segmented 83 % (47-70); Total Cells Counted 100 (MANUAL DIFF)
--- NOTE | 2020-04-29 11:20 | CASEMGMT ---
RN CM Face to Face with patient for initial transition planning/care coordination assessment. RN CM introduced self and role at [facility]. Patient lying in bed, alert and oriented. Patient willing to participate in assessment and is able to answer all questions appropriately. Care providers, pharmacy, and demographics verified. Patient wishes to discharge home, denies need for home health at this time. Patient states he has no further needs or concerns at this time. CM to follow for discharge planning needs that may arise. PCP: Dina Specialists: Carolann, servomechanism assembler; Nahomi urologist Preferred [facility]acy: [facility] Insurance[place] [facility] [facility] [place]: yes Living Will/HPOA: none LNOK: Living Arrangements: Patient lives with in a single story home with 4 steps and railing to enter the home. Patient is independent at home. Transportation: self, DME/HHC: patient denies DME or previous HHC Disposition Plan: Patient to discharge home with family support and follow-up plans in place. Emma VASQUEZ, RN, CM
[2020-04-29 11:21] LABS: Absolute Lymphocyte Count 2.12 X10^3/uL (0.83-4.51); Absolute Neutrophil Count 18.2 X10^3/uL (2.0-7.7); Lymphocyte # 2.12 X10^3/ul (4.0)
[2020-04-29 11:27] LABS: Differential Comment SEE COMMENTS
[2020-04-29 12:43] LABS: Pathologist Review Reviewed
[2020-04-29 14:35] VITALS: BP 109/67; PULSE 78; RESP 16; TEMP 36.9; O2SAT 99
[2020-04-29 21:00] VITALS: BP 135/88; PULSE 89; RESP 16; TEMP 37.1; O2SAT 97
[2020-04-29 21:14] VITALS: PULSE 89
[2020-04-29] MEDS: Atorvastatin Calcium 10 MG Tablet PO (21:14)
[2020-04-29] MEDS: Memantine Hydrochloride 10 MG Tablet PO (21:14)
[2020-04-29] MEDS: Tamsulosin HCl 0.4 MG Capsule PO (21:14)
[2020-04-29] MEDS: Metoprolol Tartrate 25 MG Tablet 12.5 MG PO (21:14)
[2020-04-29] MEDS: Oxybutynin 5 MG Tablet PO (21:14)
--- NOTE | 2020-04-29 23:27 | PCS.PANDOC ---
PANDEMIC DOCUMENTATION INITIATED: Date:04/29/2020 Time: 4342
[2020-04-30] VITALS (8 sets, daily range): BP systolic 105–125; BP diastolic 69–83; PULSE 68–84; RESP 16; TEMP 36.7–37.2; O2SAT 94–97
[2020-04-30] MEDS: traZODone 100 MG Tablet PO ×2 (02:11→22:33)
[2020-04-30] MEDS: Levothyroxine 100 MCG Tablet PO (05:18)
[2020-04-30] MEDS: Oxybutynin 5 MG Tablet PO ×3 (05:18→22:34)
[2020-04-30] MEDS: 0.9% Normal Saline 1,000 ML 100 ML IV ×2 (05:18→15:52)
[2020-04-30 07:22] LABS: Absolute Neutrophil Count 8.8 X10^3/uL (2.0-7.7); Basophil# 0.03 X10^3/uL; Basophil% 0.3 % (0-1); Eosinophils% 0.9 % (0-5); Hematocrit 33.9 % (40-54); Hemoglobin 11.4 g/dL (13.0-16.5); Lymphocyte % 10.9 % (19-41); Mean Corp Hgb Conc 33.6 g/dL (32-36); Mean Corpuscular Hgb 32.3 pg (27.0-32.0); Mean Platelet Vol. 10.6 fl (6.2-12.0); Monocyte# 0.86 X10^3/uL; Monocyte% 7.8 % (0-10); NRBC Flagged by Analyzer 0 % (0-5); Neutrophil # 8.76 X10^3/uL (2.7-7.7); Neutrophil % 79.4 % (47-70); Platelet Count 151 K/mm3 (150-450); Red Blood Count 3.53 M/mm3 (4.6-6.2)
[2020-04-30 07:40] LABS: Anion Gap 8 (5-15); BUN 15 mg/dL (7-18); BUN/Creat Ratio 15.1 RATIO (10-20); Calcium,Total 8.9 mg/dL (8.5-10.1); Chloride 110 mmol/L (98-107); EST Glomerular Filtration Rate 80 mL/min (>60); Est Glom Filt Rate - Afr Amer 97 mL/min (>60); Estimated Creatinine Clearance 76.57 ml/min; Glucose 90 mg/dL (74-106); Potassium 3.8 mmol/L (3.5-5.1); Sodium Level 142 mmol/L (136-145)
[2020-04-30] MEDS: Enoxaparin 40 MG/0.4 ML Syringe SC (09:10)
[2020-04-30] MEDS: Pantoprazole Sodium 20 MG Tablet PO (09:11)
[2020-04-30] MEDS: Losartan Potassium 25 MG Tablet PO (09:11)
[2020-04-30] MEDS: Memantine Hydrochloride 10 MG Tablet PO ×2 (09:11→22:34)
[2020-04-30] MEDS: Ceftriaxone 1 GM/50 ML BAG IV (09:11)
[2020-04-30] MEDS: Metoprolol Tartrate 25 MG Tablet 12.5 MG PO ×2 (09:11→22:33)
[2020-04-30] MEDS: Aspirin E.C. 81 MG Tablet PO (09:11)
--- NOTE | 2020-04-30 12:17 | PCM.PN.HOSP ---
Subjective: Patient seen and examined. He did complain of a bit of nausea but had resolved. He was having difficulty urinating yesterday but this improved after his Flomax was restarted. Review of systems otherwise negative. He has remained hemodynamically stable. White cell count is trended down to 11. PCPs office faxed over his urine culture results yesterday which showed that urine was growing E. coli. Vitals/I&O's: Vital Signs Temp Pulse Resp BP Pulse Ox 98.7 F 84 16 125/71 H 94 04/30/20 08:11 04/30/20 09:11 04/30/20 08:11 04/30/20 08:11 04/30/20 08:11 Oxygen Delivery Method Room Air Weight: 164 lb 3.91 oz Body Mass Index (BMI) 22.8 Intake and Output for Last 24 Hours 04/28/20 04/29/20 04/30/20 23:59 23:59 23:59 Intake Total 1050 / 1250 5953.33 / 5953.33 1186.66 / 1186.66 Output Total 250 / 875 3725 / 3725 725 / 725 Balance 800 / 375 2228.33 / 2228.33 461.66 / 461.66 General: Alert, Oriented x3, Cooperative, No apparent distress HEENT: Atraumatic, PERRLA, EOMI, Normocephalic Oral: Moist Mucosa Neck: Supple, No JVD, Negative Carotid Bruits Lungs: Clear to auscultation, Normal air movement Cardiovascular: Normal S1, Normal S2, No murmurs, Tachycardic Abdomen: Bowel Sounds Present, Soft, Non Tender Extremities: No edema, Capillary Refill Less than 3 Seconds Skin: No rashes, No breakdown Musculoskeletal: No Tenderness to Palpation of Joints or Extremities Neurological: Cranial nerves II-XII grossly intact, Neuro grossly intact, Motor Exam 5/5 strength throughout Psych/Mental Status: Normal Affect, Appropriate, Alert and oriented to time, place, person, mood and affect Microbiology Past 72 Hours 04/28/20 14:45 Urine, Clean Catch Urine Culture - Preliminary Culture exhibits no growth. 04/28/20 15:12 Mucosa - Nose SARS-CoV-2 Antigen (Rapid) - Final Laboratory Results 04/28/20 15:12: Diff Path Review Reviewed 04/30/20 06:58: WBC 11.0, RBC 3.53 L, Hgb 11.4 L, Hct 33.9 L, MCV 96.0 H, MCH 32.3 H, MCHC 33.6, RDW Std Deviation 46.0 H, RDW Coeff of Kelli 13.0, Plt Count 151, MPV 10.6, Immature Gran % (Auto) 0.700, Neut % (Auto) 79.4 H, Lymph % (Auto) 10.9 L, [place] % (Auto) 7.8, Eos % (Auto) 0.9, Baso % (Auto) 0.3, Absolute Neuts (auto) 8.8 H, Absolute Lymphs (auto) 1.20, Nucleated RBC % 0 04/30/20 06:58: Sodium 142, Potassium 3.8, Chloride 110 H, Carbon Dioxide 24.0, Anion Gap 8, BUN 15, Creatinine 1.00, Estim Creat Clear Calc 76.57, Est GFR (MDRD) Af Amer 97, Est GFR (MDRD) Non-Af 80, BUN/Creatinine Ratio 15.1, Glucose 90, Calcium 8.9 Current Medications Acetaminophen (Acetaminophen 325 Mg Tablet) 650 mg PO Q6H PRN PRN PRN Reason: Pain Score 1-10/Temp > 100.7 F Last Admin: 04/29/20 08:43 Dose: 650 mg Documented by: Aspirin (Aspirin E.C. 81 Mg Tablet) 81 mg PO DAILY@0800 [facility] Last Admin: 04/30/20 09:11 Dose: 81 mg Documented by: Atorvastatin Calcium (Atorvastatin Calcium 10 Mg Tablet) 10 mg PO DAILY@2200 [facility] Last Admin: 04/29/20 21:14 Dose: 10 mg Documented by: Enoxaparin Sodium (Enoxaparin 40 Mg/0.4 Ml Syringe) 40 mg SC DAILY [facility] Last Admin: 04/30/20 09:10 Dose: 40 mg Documented by: Hydralazine HCl (Hydralazine 20 Mg/Ml Vial) 10 mg IV Q4H PRN PRN PRN Reason: SBP > 160 Hydrochlorothiazide (Hydrochlorothiazide 12.5mg) 12.5 mg PO DAILY [facility] Sodium Chloride () 250 mls @ 15 mls/hr IV .[id number] PRN PRN Reason: Additional IVPB Infusion Sodium Chloride () 1,000 mls @ 100 mls/hr IV .Q10H [facility] Last Infusion: 04/30/20 09:11 Dose: 0 mls/hr Documented by: Ceftriaxone Sodium (Rocephin) 1 gm in 50 mls @ 100 mls/hr IV Q24 [facility] Last Admin: 04/30/20 09:11 Dose: 100 mls/hr Documented by: Levothyroxine Sodium (Levothyroxine 100 Mcg Tablet) 100 mcg PO DAILY@0600 [facility] Last Admin: 04/30/20 05:18 Dose: 100 mcg Documented by: Losartan Potassium (Losartan Potassium 25 Mg Tablet) 25 mg PO DAILY [facility] Last Admin: 04/30/20 09:11 Dose: 25 mg Documented by: Melatonin (Melatonin 3 Mg Tablet) 3 mg PO QHS PRN PRN PRN Reason: INSOMNIA Memantine (Memantine Hydrochloride 10 Mg Tablet) 10 mg PO BID [facility] Last Admin: 04/30/20 09:11 Dose: 10 mg Documented by: Metoprolol Tartrate (Metoprolol Tartrate 25 Mg Tablet) 12.5 mg PO BID [facility] Last Admin: 04/30/20 09:11 Dose: 12.5 mg Documented by: Multivitamins (Multivitamins,Therapeutic Tablet) tablet PO DAILY [facility] Nutritional Formula (Lactose Free) (Ensure Enlive 120 Ml Liquid) 120 ml PO 4X/DAY [facility] Last Admin: 04/30/20 09:11 Dose: 120 ml Documented by: Ondansetron HCl (Ondansetron 4 Mg/2 Ml Vial) 4 mg IV Q8H PRN PRN PRN Reason: NAUSEA/VOMITING Oxybutynin Chloride (Oxybutynin 5 Mg Tablet) 5 mg PO TID [facility] Last Admin: 04/30/20 05:18 Dose: 5 mg Documented by: Pantoprazole Sodium (Pantoprazole Sodium 20 Mg Tablet) 20 mg PO DAILY [facility] Last Admin: 04/30/20 09:11 Dose: 20 mg Documented by: Sodium Chloride (0.9% Saline Lock 10 Ml Syringe) 10 - 40 ml IV UD PRN PRN Reason: SALINE FLUSH Tamsulosin HCl (Tamsulosin Hcl 0.4 Mg Capsule) 0.4 mg PO QHS [facility] Last Admin: 04/29/20 21:14 Dose: 0.4 mg Documented by: Trazodone HCl (Trazodone 100 Mg Tablet) 100 mg PO QHS [facility] Last Admin: 04/30/20 02:11 Dose: 100 mg Documented by: STROKE Vital Signs/Narrative: Vital Signs Pulse 04/30/20 09:11 84 Medical Necessity - Tobacco Use Smoking Status: Never smoker Assessment/Plan All Active Problems (Last Reviewed 10/28/17 @ 15:16 by Anya Hunter) Inguinal hernia of right side without obstruction or gangrene (Acute) history of left index finger (Acute) H/O left inguinal hernia repair (Acute) H/O partial thyroidectomy (Acute) S/P tonsillectomy and adenoidectomy (Acute) Chest pain (Acute) #Sepsis due to UTI wbc is down to 11 today. on IV rocephin encourage oral intake, and stop IVF blood cultures pending; urine culture here shows no growth urine culture from PCP's office is growing E coli #Hypertension: on HCTZ and metoprolol #Hyperlipidemia: on statin #Hypothyroidism s/o partial thyroidectomy on synthroid #History of BPH: on flomax #GERD: on PPI DVT prophylaxis: lovenox Inpatient E&M: 64504 Subs Hosp L2
[2020-04-30] MEDS: Atorvastatin Calcium 10 MG Tablet PO (22:33)
[2020-04-30] MEDS: Tamsulosin HCl 0.4 MG Capsule PO (22:34)
[2020-05-01] MEDS: 0.9% Normal Saline 1,000 ML 100 ML IV (02:52)
[2020-05-01 04:30] VITALS: BP 123/69; PULSE 70; RESP 16; TEMP 36.7; O2SAT 96
[2020-05-01] MEDS: Oxybutynin 5 MG Tablet PO (05:11)
[2020-05-01] MEDS: Levothyroxine 100 MCG Tablet PO (05:11)
[2020-05-01 05:16] LABS: Absolute Lymphocyte Count 1.45 X10^3/uL (0.83-4.51); Absolute Neutrophil Count 5.2 X10^3/uL (2.0-7.7); Basophil# 0.03 X10^3/uL; Basophil% 0.4 % (0-1); Eosinophil# 0.18 X10^3/uL; Eosinophils% 2.3 % (0-5); Hematocrit 31.8 % (40-54); Hemoglobin 10.5 g/dL (13.0-16.5); Lymphocyte # 1.45 X10^3/ul (4.0); Lymphocyte % 18.4 % (19-41); Mean Platelet Vol. 10.3 fl (6.2-12.0); Monocyte# 0.93 X10^3/uL; Monocyte% 11.8 % (0-10); NRBC Flagged by Analyzer 0 % (0-5); Neutrophil # 5.24 X10^3/uL (2.7-7.7); Neutrophil % 66.6 % (47-70); Platelet Count 139 K/mm3 (150-450); Red Blood Count 3.28 M/mm3 (4.6-6.2); White Blood Count 7.9 K/mm3 (4.4-11.0)
[2020-05-01 05:38] LABS: Anion Gap 5 (5-15); BUN 15 mg/dL (7-18); BUN/Creat Ratio 14.9 RATIO (10-20); Calcium,Total 8.9 mg/dL (8.5-10.1); Chloride 112 mmol/L (98-107); Creatinine, Serum 1.01 mg/dL (0.70-1.30); EST Glomerular Filtration Rate 78 mL/min (>60); Est Glom Filt Rate - Afr Amer 95 mL/min (>60); Estimated Creatinine Clearance 75.81 ml/min; Glucose 105 mg/dL (74-106); Potassium 3.8 mmol/L (3.5-5.1); Sodium Level 143 mmol/L (136-145)
[2020-05-01 07:14] VITALS: O2SAT 95
[2020-05-01 09:18] VITALS: BP 137/86; PULSE 73; RESP 16; TEMP 36.3; O2SAT 99
[2020-05-01 09:23] VITALS: PULSE 73
[2020-05-01] MEDS: Memantine Hydrochloride 10 MG Tablet PO (09:23)
[2020-05-01] MEDS: Pantoprazole Sodium 20 MG Tablet PO (09:23)
[2020-05-01] MEDS: Aspirin E.C. 81 MG Tablet PO (09:23)
[2020-05-01] MEDS: Metoprolol Tartrate 25 MG Tablet 12.5 MG PO (09:23)
[2020-05-01] MEDS: hydroCHLOROthiazide 12.5mg 12.5 MG PO (09:23)
[2020-05-01] MEDS: Losartan Potassium 25 MG Tablet PO (09:23)
[2020-05-01] MEDS: Enoxaparin 40 MG/0.4 ML Syringe SC (09:24)
[2020-05-01] MEDS: Ceftriaxone 1 GM/50 ML BAG IV (09:24)
--- NOTE | 2020-05-01 10:15 | PCM.DC ---
You will use the following diet at home:: Cardiac Your food should be the consistency of: Regular Your liquids should be the consistency of: Regular/Thin Discharge Activity: Return to Normal Activity Weight Bearing Status: Weight bearing as tolerated Call your doctor if you observe: Fever of 101 or Higher, Inability to urinate, Shortness of breath, Dizziness, Fainting spells, Swelling in the ankles Instructions: Benign Prostatic Hyperplasia, Understanding Urinary Tract Infections (UTIs) Additional Instructions: follow up with your urologist at [facility] within 1-2 weeks Allergies/Adverse Reactions: Allergies codeine Allergy (Verified 04/28/20 16:44) It affected my breathing Medications to take at Discharge Levothyroxine [Synthroid] 100 mcg PO DAILY 05/17/15 Metoprolol Tartrate [Lopressor (beta maddi)] 12.5 mg PO BID 05/17/15 Omeprazole [Prilosec] 20 mg PO DAILY 05/17/15 Tamsulosin HCl [Flomax] 0.4 mg PO QHS 05/17/15 traZODone [Desyrel] 100 mg PO QHS 05/17/15 Losartan Potassium [Cozaar] 25 mg PO DAILY 12/28/19 Oxybutynin [Ditropan] 5 mg PO TID 12/28/19 Aspirin E.C. [Ecotrin] 81 mg PO DAILY@0800 04/28/20 Atorvastatin Calcium 10 mg PO DAILY 04/28/20 Memantine HCl [Namenda Xr] 28 mg PO DAILY 04/28/20 Multivitamins,Therapeutic [Multivitamin] 1 tab PO DAILY 04/28/20 hydroCHLOROthiazide [Hydrochlorothiazide] 12.5 mg PO DAILY 04/28/20 Cefdinir 300 mg PO BID #14 cap 05/01/20 The following prescriptions were given: Cefdinir 300 mg PO BID #14 cap Transmission Status: Pending to [facility]/pharmacy #[id number] Primary Care Physician: Kemar Arroyo MD [Primary Care Provider] - Please follow up with your Primary Care Physician in: 1-2 WEEKS Test Results: Test results from this visit will be discussed in further detail at your follow-up appointment, if applicable.
--- NOTE | 2020-05-01 10:17 | PCM.DC.SUM ---
Discharge Date and Diagnosis Date of Admission: 04/28/20 Date of Discharge: 05/01/20 - Primary Discharge Diagnosis Acute Problems: sepsis due to UTI - Secondary Discharge Diagnosis Chronic Problems: Chronic Problems (Last Reviewed 10/28/17 @ 15:16 by Anya Hunter) BPH (benign prostatic hyperplasia) (Chronic) Hypothyroidism (Chronic) Hypertension (Chronic) Hospital Course and Treatment Imaging Results: Diagnostic Data Chest X-Ray 04/28/20 14:55 IMPRESSION: No acute abnormality is seen. Electronically Signed: Power Knox MD at 15:47 EST , Service support , Operations: None Procedures: None Summary of Care Provided: The patient is a 64 year old M with a past medical history as outlined which includes hypothyroidism, hypertension and BPH was admitted through the ED from his PCPs office on 04/28/2020. Patient had been having urinary symptoms and went to his PCP, where urinalysis done showed leukocyte esterase and positive nitrates. He was started on oral ciprofloxacin. He went home and went back the next day for review and blood work done showed high white cell count to time. So he was sent to the ER. In the ER he was noted to be tachycardic and his white cell count was elevated at 21. UA showed negative nitrates and 25 leukocyte esterase. He was admitted to manage for sepsis due to UTI. Urine culture and blood cultures were obtained. White cell counts trended down and his urine culture done in his PCPs office grew E. coli. Urine culture and blood cultures done here in the hospital were negative which is understandable as he had been on oral ciprofloxacin before presenting to the ED. His lower urinary tract symptoms also improved when his Flomax was resumed. White cell count trended down from 21-7.9 at time of discharge. Was discharged home on p.o. Omnicef 300 mg twice daily for 7 days. He is to follow up with his PCP in -12 weeks. Patient seen and examined. He still has some lower urinary tract symptoms due to BPH. Review of systems otherwise negative. Labs and vitals reviewed. Home medications reviewed and reconciled. He states he has not followed up with his urologist since October and patient was advised that it is prudent that he gets an appointment with his urologist in the [facility] system as soon as possible for follow-up of his symptoms. O/E: Vital Signs Temp Pulse Resp BP Pulse Ox 98.1 F 68 16 140/90 H 98 05/01/20 12:07 05/01/20 12:07 05/01/20 12:07 05/01/20 12:07 05/01/20 12:07 [] General: Alert, Oriented x3, Cooperative, No apparent distress HEENT: Atraumatic, PERRLA, EOMI, Normocephalic Oral: Moist Mucosa Neck: Supple, No JVD, Negative Carotid Bruits Lungs: Clear to auscultation, Normal air movement Cardiovascular: Normal S1, Normal S2, No murmurs, regular rate and rhythm Abdomen: Bowel Sounds Present, Soft, Non Tender Extremities: No edema, Capillary Refill Less than 3 Seconds Skin: No rashes, No breakdown Musculoskeletal: No Tenderness to Palpation of Joints or Extremities Neurological: Cranial nerves II-XII grossly intact, Neuro grossly intact, Motor Exam 5/5 strength throughout Psych/Mental Status: Normal Affect, Appropriate, Alert and oriented to time, place, person, mood and affect Plan is for discharge home today as above. - Physical Exam Vitals/I&O's: Vital Signs Temp Pulse Resp BP Pulse Ox 97.4 F L 73 16 137/86 H 99 05/01/20 09:18 05/01/20 09:23 05/01/20 09:18 05/01/20 09:18 05/01/20 09:18 Oxygen Delivery Method Room Air Weight: 164 lb 3.91 oz Body Mass Index (BMI) 22.8 Intake and Output for Last 24 Hours 04/29/20 04/30/20 05/01/20 23:59 23:59 23:59 Intake Total 5953.33 / 5953.33 3748.33 / 3748.33 1653.33 / 1653.33 Output Total 3725 / 3725 2575 / 3125 1050 / 1050 Balance 2228.33 / 2228.33 1173.33 / 623.33 603.33 / 603.33 Microbiology Past 72 Hours 04/28/20 14:45 Urine, Clean Catch Urine Culture - Final Culture exhibits no growth. 04/28/20 15:20 Blood Culture (Wb) - Anticubital Left Blood Culture - Preliminary No growth in 48 hours. 04/28/20 15:20 Blood Culture (Wb) - Anticubital Right Blood Culture - Preliminary No growth in 48 hours. 04/28/20 15:12 Mucosa - Nose SARS-CoV-2 Antigen (Rapid) - Final Laboratory Results 05/01/20 05:00: WBC 7.9, RBC 3.28 L, Hgb 10.5 L, Hct 31.8 L, MCV 97.0 H, MCH 32.0, MCHC 33.0, RDW Std Deviation 47.0 H, RDW Coeff of Kelli 13.0, Plt Count 139 L, MPV 10.3, Immature Gran % (Auto) 0.500, Neut % (Auto) 66.6, Lymph % (Auto) 18.4 L, [place] % (Auto) 11.8 H, Eos % (Auto) 2.3, Baso % (Auto) 0.4, Absolute Neuts (auto) 5.2, Absolute Lymphs (auto) 1.45, Nucleated RBC % 0 05/01/20 05:00: Sodium 143, Potassium 3.8, Chloride 112 H, Carbon Dioxide 26.0, Anion Gap 5, BUN 15, Creatinine 1.01, Estim Creat Clear Calc 75.81, Est GFR (MDRD) Af Amer 95, Est GFR (MDRD) Non-Af 78, BUN/Creatinine Ratio 14.9, Glucose 105, Calcium 8.9 Current Medications Acetaminophen (Acetaminophen 325 Mg Tablet) 650 mg PO Q6H PRN PRN PRN Reason: Pain Score 1-10/Temp > 100.7 F Last Admin: 04/29/20 08:43 Dose: 650 mg Documented by: Aspirin (Aspirin E.C. 81 Mg Tablet) 81 mg PO DAILY@0800 [facility] Last Admin: 05/01/20 09:23 Dose: 81 mg Documented by: Atorvastatin Calcium (Atorvastatin Calcium 10 Mg Tablet) 10 mg PO DAILY@2200 [facility] Last Admin: 04/30/20 22:33 Dose: 10 mg Documented by: Enoxaparin Sodium (Enoxaparin 40 Mg/0.4 Ml Syringe) 40 mg SC DAILY [facility] Last Admin: 05/01/20 09:24 Dose: 40 mg Documented by: Hydralazine HCl (Hydralazine 20 Mg/Ml Vial) 10 mg IV Q4H PRN PRN PRN Reason: SBP > 160 Hydrochlorothiazide (Hydrochlorothiazide 12.5mg) 12.5 mg PO DAILY [facility] Last Admin: 05/01/20 09:23 Dose: 12.5 mg Documented by: Sodium Chloride () 250 mls @ 15 mls/hr IV .[id number] PRN PRN Reason: Additional IVPB Infusion Ceftriaxone Sodium (Rocephin) 1 gm in 50 mls @ 100 mls/hr IV Q24 [facility] Last Admin: 05/01/20 09:24 Dose: 100 mls/hr Documented by: Levothyroxine Sodium (Levothyroxine 100 Mcg Tablet) 100 mcg PO DAILY@0600 [facility] Last Admin: 05/01/20 05:11 Dose: 100 mcg Documented by: Losartan Potassium (Losartan Potassium 25 Mg Tablet) 25 mg PO DAILY [facility] Last Admin: 05/01/20 09:23 Dose: 25 mg Documented by: Melatonin (Melatonin 3 Mg Tablet) 3 mg PO QHS PRN PRN PRN Reason: INSOMNIA Memantine (Memantine Hydrochloride 10 Mg Tablet) 10 mg PO BID [facility] Last Admin: 05/01/20 09:23 Dose: 10 mg Documented by: Metoprolol Tartrate (Metoprolol Tartrate 25 Mg Tablet) 12.5 mg PO BID [facility] Last Admin: 05/01/20 09:23 Dose: 12.5 mg Documented by: Multivitamins (Multivitamins,Therapeutic Tablet) 1 tablet PO DAILY@1200 [facility] Nutritional Formula (Lactose Free) (Ensure Enlive 120 Ml Liquid) 120 ml PO 4X/DAY [facility] Last Admin: 05/01/20 09:24 Dose: 120 ml Documented by: Ondansetron HCl (Ondansetron 4 Mg/2 Ml Vial) 4 mg IV Q8H PRN PRN PRN Reason: NAUSEA/VOMITING Oxybutynin Chloride (Oxybutynin 5 Mg Tablet) 5 mg PO TID [facility] Last Admin: 05/01/20 05:11 Dose: 5 mg Documented by: Pantoprazole Sodium (Pantoprazole Sodium 20 Mg Tablet) 20 mg PO DAILY [facility] Last Admin: 05/01/20 09:23 Dose: 20 mg Documented by: Sodium Chloride (0.9% Saline Lock 10 Ml Syringe) 10 - 40 ml IV UD PRN PRN Reason: SALINE FLUSH Tamsulosin HCl (Tamsulosin Hcl 0.4 Mg Capsule) 0.4 mg PO QHS [facility] Last Admin: 04/30/20 22:34 Dose: 0.4 mg Documented by: Trazodone HCl (Trazodone 100 Mg Tablet) 100 mg PO QHS [facility] Last Admin: 04/30/20 22:33 Dose: 100 mg Documented by: Discharge Diet: Low fat/ Low Cholesterol Discharge Activity: Return to Normal Activity Weight Bearing Status: Weight bearing as tolerated Call your doctor if you observe: Fever of 101 or Higher, Inability to urinate, Shortness of breath, Dizziness, Fainting spells, Swelling in the ankles Home Medications: Medications to take at Discharge Levothyroxine [Synthroid] 100 mcg PO DAILY 05/17/15 Metoprolol Tartrate [Lopressor (beta maddi)] 12.5 mg PO BID 05/17/15 Omeprazole [Prilosec] 20 mg PO DAILY 05/17/15 Tamsulosin HCl [Flomax] 0.4 mg PO QHS 05/17/15 traZODone [Desyrel] 100 mg PO QHS 05/17/15 Losartan Potassium [Cozaar] 25 mg PO DAILY 12/28/19 Oxybutynin [Ditropan] 5 mg PO TID 12/28/19 Aspirin E.C. [Ecotrin] 81 mg PO DAILY@0800 04/28/20 Atorvastatin Calcium 10 mg PO DAILY 04/28/20 Memantine HCl [Namenda Xr] 28 mg PO DAILY 04/28/20 Multivitamins,Therapeutic [Multivitamin] 1 tab PO DAILY 04/28/20 hydroCHLOROthiazide [Hydrochlorothiazide] 12.5 mg PO DAILY 04/28/20 Cefdinir 300 mg PO BID #14 cap 05/01/20 Following Prescriptions Were Given to Patient: Cefdinir 300 mg PO BID #14 cap Transmission Status: Received by [facility]/pharmacy #[id number] Primary Care Physician: Kemar Arroyo MD [Primary Care Provider] - Please follow up with your Primary Care Physician in: 1-2 WEEKS Patient Instructions: Understanding Urinary Tract Infections (UTIs), Benign Prostatic Hyperplasia Disposition: Home Minutes spent on discharge:: 40 Patient Condition:: Stable Medical Necessity - Tobacco Use Smoking Status: Never smoker Meaningful Use Info Meaningful Use Diagnoses (Choose all that apply): None applicable Inpatient E&M: 54343 Disch Hosp
[2020-05-01 12:07] VITALS: BP 140/90; PULSE 68; RESP 16; TEMP 36.7; O2SAT 98
--- NOTE | 2020-05-03 16:05 | CASEMGMT ---
JORY RUIZ Discharge Follow-up Phone Call: JIANElinor: Gus Strata: 3 Call Date: 05/03/20 Discharge Date: 05/01/20 Time of Call: 1605 Duration: 3 min Admitting Diagnosis: Sepsis, UTI JORY RUIZ completed follow-up phone call after recent hospitalization. Patient states he is doing ok. Patient had no questions or concerns regarding discharge instructions. Patient was able to fill prescriptions without any issues. Patient has follow-up appt scheduled with Urologist. Patient had no further questions or concerns at this time.
== END 2020-05-01 12:07 | disposition home or self-care (01) | DRG 872 ==
LOC: ED 15:58 → MS3 17:41
PROVIDERS: Admitting Provider Family Medicine; Emergency Provider Emergency Medicine; PCP Family Medicine; Visit Provider Student in an Organized Health Care Education/Training Program
DX: A41.9 Sepsis, unspecified organism (principal); N39.0 Urinary tract infection, site not specified; B96.20 Unspecified Escherichia coli [E. coli] as the cause of diseases classified elsewhere; Z20.822 Contact with and (suspected) exposure to COVID-19; I10 Essential (primary) hypertension; E78.5 Hyperlipidemia, unspecified; E89.0 Postprocedural hypothyroidism; N40.1 Benign prostatic hyperplasia with lower urinary tract symptoms; F03.90 Unspecified dementia, unspecified severity, without behavioral disturbance, psychotic disturbance, mood disturbance, and anxiety; K21.9 Gastro-esophageal reflux disease without esophagitis; Z79.82 Long term (current) use of aspirin; Z79.890 Hormone replacement therapy; Z79.899 Other long term (current) drug therapy
CPT/HCPCS: 36415; 71045; 80048; 80053; 81002; 83605; 85025; 87040; 87086; 87426; 97802; 99285; J7030; J7050

== ENCOUNTER 2021-07-18 14:13 | Outpatient (CLI) | payer MEDICARE, OTHER, SELFPAY ==
[2021-07-18 17:40] LABS: Erythrocyte Sedimentation Rate 13 mm/hr (0-20)
[2021-07-18 17:48] LABS: Absolute Lymphocyte Count 2.31 X10^3/uL (0.83-4.51); Absolute Neutrophil Count 4.4 X10^3/uL (2.0-7.7); Basophil# 0.05 X10^3/uL; Basophil% 0.6 % (0-1); Eosinophil# 0.07 X10^3/uL; Eosinophils% 0.9 % (0-5); Hematocrit 42.6 % (40-54); Hemoglobin 14.8 g/dL (13.0-16.5); Lymphocyte # 2.31 X10^3/ul (0.83-4.51); Lymphocyte % 29.8 % (19-41); Mean Corp Hgb Conc 34.7 g/dL (32-36); Mean Corpuscular Hgb 32.1 pg (27.0-32.0); Mean Corpuscular Volume 92.4 fL (80-94); Mean Platelet Vol. 10.7 fl (6.2-12.0); Monocyte# 0.91 X10^3/uL; Monocyte% 11.7 % (0-10); NRBC Flagged by Analyzer 0 % (0-5); Neutrophil # 4.39 X10^3/uL (2.7-7.7); Neutrophil % 56.6 % (47-70); POSITIVE COUNT YES; Platelet Count 183 K/mm3 (150-450); RBC Distribution Width CV 13.2 % (11.6-14.6); RBC Distribution Width SD 44.6 fl (35.1-43.9); Red Blood Count 4.61 M/mm3 (4.6-6.2); White Blood Count 7.8 K/mm3 (4.4-11.0)
[2021-07-18 17:58] LABS: AST(SGOT) 29 U/L (15-37); Alanine Aminotransfer ALT/SGPT 39 U/L (16-61); Albumin, Serum 3.7 g/dL (3.2-5.0); Alkaline Phosphatase 79 U/L (45-117); Anion Gap 6 (5-15); BUN 16 mg/dL (7-18); BUN/Creat Ratio 12.4 RATIO (10-20); CRP < 2.90 mg/L (0.0-3.0); Calcium,Total 9.3 mg/dL (8.5-10.1); Chloride 107 mmol/L (98-107); Creatinine, Serum 1.29 mg/dL (0.70-1.30); EST Glomerular Filtration Rate 59 mL/min (>60); Est Glom Filt Rate - Afr Amer 71 mL/min (>60); Globulin 3.6 g/dL (2.2-4.2); Glucose 82 mg/dL (74-106); Potassium 3.7 mmol/L (3.5-5.1); Protein, Total 7.3 g/dL (6.4-8.2); Rheumatoid Factor < 10.0 IU/mL (<15); Sodium Level 140 mmol/L (136-145)
[2021-07-18 18:24] LABS: Differential Indicated SCAN CRITERIA MET
[2021-07-18 18:26] LABS: Differential Comment SCANNED
[2021-07-18 18:27] LABS: Platelet Estimate ADEQUATE (ADEQ)
[2021-07-19 08:26] LABS: Hepatitis B Surface Antibody Reactive; Hepatitis B Surface Antigen Non-Reactive (Nonreactive); Hepatitis C Antibody Non-Reactive (Nonreactive)
[2021-07-20 16:00] LABS: ANTINUCLEAR ANTIBODIES DIRECT Negative (Negative)
[2021-07-21 00:06] LABS: QNTFERON TB Mitogen Value > 10.00 IU/mL (.); QNTFERON TB Nil Value 0.04 IU/mL (.); QNTFERON TB1+ Ag Value 0.04 IU/mL (.); QNTFERON TB2+ Ag Value 0.03 IU/mL (.)
[2021-07-21 08:21] LABS: CCP IgG Antibodies 4 units (0-19); QNTIFERON TB Positive Criteria Negative (Negative)
== END 2021-07-18 23:59 | disposition home or self-care (01) ==
LOC: MTLAB 14:15
PROVIDERS: PCP Family Medicine; Referring Provider Internal Medicine Rheumatology; Visit Provider Internal Medicine Rheumatology
DX: L40.59 Other psoriatic arthropathy (principal); F03.90 Unspecified dementia, unspecified severity, without behavioral disturbance, psychotic disturbance, mood disturbance, and anxiety; K50.90 Crohn's disease, unspecified, without complications; M19.041 Primary osteoarthritis, right hand; L40.8 Other psoriasis; I12.9 Hypertensive chronic kidney disease with stage 1 through stage 4 chronic kidney disease, or unspecified chronic kidney disease; N18.9 Chronic kidney disease, unspecified; E03.9 Hypothyroidism, unspecified; E78.5 Hyperlipidemia, unspecified; H93.13 Tinnitus, bilateral; K21.9 Gastro-esophageal reflux disease without esophagitis; Z79.899 Other long term (current) drug therapy
CPT/HCPCS: 36415; 80053; 85025; 85652; 86038; 86140; 86200; 86431; 86480; 86706; 86803; 87340

== ENCOUNTER 2021-08-09 09:59 | Emergency (ER) | payer MEDICARE, OTHER, SELFPAY ==
[2021-08-09 10:01] VITALS: BP 159/90; PULSE 98; RESP 17; TEMP 37; O2SAT 96; BMI 27.6
--- NOTE | 2021-08-09 10:01 | RAD_ITS ---
STUDY: X-RAY CHEST REASON FOR EXAM: Male, 66 years old. Chest pain TECHNIQUE: Single AP portable view of the chest. COMPARISON: Comparison is made with prior study dated 04/28/2020. FINDINGS: EKG electrodes are seen. The lungs are clear and expanded. There is no demonstrated pleural abnormality. Normal size heart. Normal mediastinum and martita. Normal visualized pulmonary arteries. Normal visualized aortic arch and descending thoracic aorta. There are diffuse degenerative changes of the visualized thoracic spine. Normal visualized ribs, clavicles, and shoulders. There is no demonstrated abnormality of the visualized soft tissue structures of the upper abdomen. RAD/Chest 1 View (Portable) IMPRESSION: Normal x-ray examination of the chest. Electronically Signed: Power Knox MD at 10:40 EDT ,
--- NOTE | 2021-08-09 10:01 | EKG12_ITS ---
Test Reason : CP Blood Pressure : / mmHG Vent. Rate : 077 BPM Atrial Rate : 077 BPM P-R Int : 156 ms QRS Dur : 098 ms QT Int : 386 ms P-R-T Axes : 057 -24 028 degrees QTc Int : 436 ms Normal sinus rhythm Septal infarct , age undetermined , cannot be excluded Abnormal ECG Confirmed by CASIE TIRADO, GUY ([id number]), technical writer and editor [employer] ([id number]) on 08/10/2021 8:43:53 AM Referred By: MEMO Confirmed By:GUY JASON MD
[2021-08-09 10:13] VITALS: O2SAT 97
--- NOTE | 2021-08-09 10:13 | ED.VIS.CHEST ---
HPI History of Present Illness Chief Complaint: Chest Pain Informant: patient and spouse/S.O. Onset/Context/Timing Onset: Today Activity at onset: sudden Timing: Intermittent Quality: Positive for Aching Location: Right Chest and Left Chest Current Severity: Gone Maximum Severity: Mild Worsened By: Nothing Relieved By: Nothing Associated Symptoms: Negative for Nausea, Vomiting, Diaphoresis, Dyspnea, Cough, Fever, Lightheadedness, Acid Reflux and Palpitations Narrative Prior Similar Symptoms: No Recent Illness/Hospitalization: No CVD Risk Factors: Positive for Hypertension; Negative for Diabetes and Smoking PE Risk Factors: Negative for Recent Travel/Surgery, Recent Immobilization, Prior DVT or PE, Cancer and OCP + Smoking + >/=35 TAD Risk Factors: Negative for Marfan's Syndrome PFSH [facility] Medical History BPH (benign prostatic hyperplasia) Chest pain Dementia Hypertension Hypothyroidism Home Medications levothyroxine 100 mcg PO DAILY 05/17/15 [History Last Taken 04/28/20] metoprolol tartrate 12.5 mg PO BID 05/17/15 [History Last Taken 04/28/20] omeprazole 20 mg PO DAILY 05/17/15 [History Last Taken 04/27/20] trazodone 100 mg PO QHS 05/17/15 [History Last Taken 04/26/20] losartan 25 mg PO DAILY 12/28/19 [History Last Taken Unknown] aspirin 81 mg PO DAILY@0800 04/28/20 [History Last Taken 04/28/20] atorvastatin 10 mg PO DAILY 04/28/20 [History Last Taken 04/28/20] hydrochlorothiazide 12.5 mg PO DAILY 04/28/20 [History Last Taken 04/28/20] memantine 28 mg PO DAILY 04/28/20 [History Last Taken 04/28/20] multivitamin 1 tab PO DAILY 04/28/20 [History Last Taken 04/27/20] apremilast [Otezla] 30 mg PO DAILY 08/09/21 [History Last Taken Unknown] infliximab-abda [Renflexis] 500 mg IV 08/09/21 [History Last Taken Unknown] Allergy/AdvReac Type Severity Reaction Status Date / Time codeine Allergy It Verified 08/09/21 09:59 affected my breathing Family History Mother Diabetes Heart disease CAD (coronary artery disease) Kidney disease Thyroid disorder Father Cancer Heart disease Hypertension Surgical History H/O left inguinal hernia repair H/O partial thyroidectomy history of left index finger Inguinal hernia of right side without obstruction or gangrene S/P tonsillectomy and adenoidectomy Social History Smoking Status: Never smoker alcohol intake: never ROS ROS ED ROS Narrative Chest pain today. Denies any recent exertional chest pain or shortness of breath. Review of Systems ROS Unobtainable: Denies due to encephalopathy Constitutional Constitutional ED: Denies fever(s) Eyes Eyes: Denies none ENT ENT ED: Denies ear pain Cardiovascular Cardiovascular: Reports as per HPI and chest pain; Denies palpitations or racing heartbeat Respiratory/Chest Respiratory/Chest: Denies cough, dyspnea or sputum Gastrointestinal Gastrointestinal: Denies abdominal pain, nausea or vomiting Genitourinary Genitourinary ED: Denies dysuria or hematuria Musculoskeletal Musculoskeletal: Denies myalgias Integumentary Denies rash Neurologic Neurologic: Denies headache(s) Psychiatric Psychiatric: Denies depression Endocrine Endocrinology: Denies polyuria Hematologic/Lymphatic Hematologic/Lymphatic: Denies easy bruising Allergic/Immunologic Allergic/Immunologic ED: Denies urticaria EXAM Physical Exam Narrative Exam Narrative: 14-year-old male. Vital signs stable afebrile. Pulse ox 96% on room air no hypoxia. No distress. HEENT exam unremarkable. Moist use membranes. Neck nontender no lymphadenopathy. No JVD. Lungs clear to auscultation bilaterally. Heart regular rate and rhythm no murmur. Chest wall nontender. Abdomen soft nontender. Back nontender. Moving all 4 extremities. Equal symmetrical director post strength. Dorsi plantarflexion intact. Calves are nontender without edema. No cords. Equal symmetrical radial pulses. Neurologically is awake and alert. Moving all 4 extremities. Const Vital Signs: 08/09/21 10:01 08/09/21 10:13 08/09/21 11:20 Temperature 98.6 F Temperature Source Temporal Pulse Rate 98 70 Respiratory Rate 17 15 Respiratory Effort Normal Non-Labored Blood Pressure 159/90 H 126/81 H Blood Pressure Mean 113 96 Pulse Ox 96 97 96 Oxygen Delivery Method Room Air Room Air Room Air 08/09/21 12:39 Temperature Temperature Source Pulse Rate 66 Respiratory Rate 17 Respiratory Effort Blood Pressure 133/86 H Blood Pressure Mean 101 Pulse Ox 97 Oxygen Delivery Method Room Air Positive well nourished and well developed; Negative for obese, cachectic, contractures or unkempt General Appearance ED: well developed and NAD; Negative for unkempt, cachectic, contractures or pallor Nutritional Appearance: Negative for cachectic or obese HEENT Reports moist mucous membranes normocephalic and atraumatic; Negative for trauma or tenderness Eyes PERRL and EOMs intact bilaterally Neck no lymphadenopathy, supple and no JVD General: Negative for tenderness Chest Wall inspection of chest normal and palpation of chest normal Chest: Negative for tenderness Resp normal respiratory effort and clear to auscultation bilaterally Effort and Inspection: respiratory distress Auscultation: Negative for rales, rhonchi or wheezes Cardio regular rate, regular rhythm, S1 normal heart sound, S2 normal heart sound and no murmurs Rate: Negative for bradycardia or tachycardic Rhythm: Negative for abnormal rhythm GI normal to inspection, nondistended, normoactive bowel sounds, soft to palpation, non-tender, non-distended and no masses; Negative for hepatosplenomegaly Auscultation: Negative for hyperactive bowel sounds Palpation: Negative for splenomegaly or mass Back/Spine no CVA tenderness General Back: Negative for CVA tenderness Extremity normal to inspection General Extremety ED: Negative for edema, pulses abnormal or tenderness General Extremity: Negative for edema or pulses abnormal Neuro oriented x3 Sensorium / Orientation: awake, alert, oriented to person, oriented to place and oriented to time Motor Exam: strength 5/5 throughout Psych mental status grossly normal Appearance: Negative for unkempt Attitude: No agitated Mood & Affect: Negative for depressed, anxious or tearful Skin no rashes or lesions noted and no wounds General Skin Exam: Negative for jaundice or pallor Heart Score History: Slightly/Non-Suspicious ECG: Normal Age: >/= 65 years Risk Factors: 1 or 2 Risk Factors Troponin: </= Normal Limit Score: 3 MDM MDM MDM Narrative Medical decision making narrative: 66-year-old male history of hypertension with a brief episode today of bilateral chest pain. Currently symptom-free. Yesterday worked in his yard and had no exertional chest pain or shortness of breath states he felt fine. He denies any recent exertional chest pain or shortness of breath. He has no cardiac history he had a stress test years ago that was negative. No history of DVT or PE. No risk factors. His exam is benign. Currently is pain-free. Undergo cardiac work-up. Repeat exam patient is doing well. He has had no chest pain in the emergency department. This chest pain he had today lasted less than 5 minutes it was nonexertional. He will be referred for outpatient follow-up with his primary care provider. Prior to discharge patient when may examine his left groin area. His left testicle is slightly enlarged compared to the right. There is no significant tenderness. He does have a fullness posterior to the testicle that could be is hematocele or varicocele or even a mass. There is no signs of infection. There is no edema. I explained him to follow-up with his primary care physician and get an ultrasound of this area.. Lab Data Attestation: I reviewed the patient's lab results. Lab results narrative: CBC White count 7. H&H 14 and 43. Electrolytes unremarkable gap of 7 BUN 24 creatinine 1.38. High-sensitivity troponin 5. Delta troponin is 6. Labs: Laboratory Results - last 24 hr 08/09/21 08/09/21 08/09/21 10:15 10:15 12:27 WBC 7.5 RBC 4.58 L Hgb 14.9 Hct 43.0 MCV 93.9 MCH 32.5 H MCHC 34.7 RDW Std Deviation 45.8 H RDW Coeff of Kelli 13.3 Plt Count 213 MPV 10.2 Immature Gran % (Auto) 0.400 Neut % (Auto) 63.5 Lymph % (Auto) 24.9 [place] % (Auto) 10.3 H Eos % (Auto) 0.5 Baso % (Auto) 0.4 Absolute Neuts (auto) 4.7 Absolute Lymphs (auto) 1.86 Nucleated RBC % 0 Sodium 140 Potassium 3.5 Chloride 107 Carbon Dioxide 26.0 Anion Gap 7 BUN 24 H Creatinine 1.38 H Estim Creat Clear Calc 54.57 Est GFR (MDRD) Af Amer 66 Est GFR (MDRD) Non-Af 55 L BUN/Creatinine Ratio 17.4 Glucose 115 H Calcium 9.8 Troponin I High Sens 5 6 Radiography Chest X-Ray - ED: 1 View, Read by ED Physician, Heart, Lungs, Mediastinum, Bony Structures and No Acute Disease Diagnostic Testing: Clinical Impression(s) from Imaging Studies Chest X-Ray 08/09/21 10:01 IMPRESSION: Normal x-ray examination of the chest. Electronically Signed: Power Knox MD at 10:40 EDT , Chest x-ray, portable, single view interpreted by myself and radiologist shows no acute abnormality. Normal cardiac silhouette. Normal mediastinum. Rhythm Strip Rhythm Strip: Sinus Rhythm Rate: 77 Ectopy: None EKG Initial EKG: Attestation: I personally reviewed and interpreted this EKG as follows: Interpretation: Sinus Rhythm and No Acute Injury Pattern Comments: Normal sinus rhythm rate of 77 no acute signs of [place]. No old EKG available for comparison. Prior EKG tracings: available for review Prior: No Prior Discharge Plan Triage Chief Complaint: Chest Pain ED Provider: Simeon Harris Dx/Rx/DC Orders Clinical Impression: Chest pain, Hypertension Instructions: ED Chest Pain, Uncertain Cause Prescriptions: No Action levothyroxine 100 MCG tablet 100 mcg PO DAILY RF: 0 trazodone 100 MG tablet 100 mg PO QHS RF: 0 omeprazole 20 MG capsule 20 mg PO DAILY RF: 0 metoprolol tartrate 25 MG tablet 12.5 mg PO BID RF: 0 losartan 50 MG tablet 25 mg PO DAILY RF: 0 multivitamin 1 TABLET tablet 1 tab PO DAILY RF: 0 atorvastatin 10 MG tablet 10 mg PO DAILY RF: 0 aspirin 81 MG tablet 81 mg PO DAILY@0800 RF: 0 hydrochlorothiazide 12.5 MG capsule 12.5 mg PO DAILY RF: 0 memantine 28 MG capsule,sprinkle,ER 24hr 28 mg PO DAILY RF: 0 Otezla 30 mg Tablet 30 mg PO DAILY RF: 0 Renflexis 100 mg Recon Soln 500 mg IV RF: 0 Primary Care Provider: Kemar Arroyo Referrals: Kemar Arroyo MD [Primary Care Provider] - As soon as possible Activity Restrictions/Additional Instructions: Your work-up today was normal. Your EKG, chest x-ray and. Heart enzymes were all normal. Follow-up with your primary care provider. Return to emergency room if feeling a lot worse such as severe worsening or severe chest pain or severe shortness of breath. Disposition Disposition: Home, Self Care
[2021-08-09 10:26] LABS: Absolute Lymphocyte Count 1.86 X10^3/uL (0.83-4.51); Absolute Neutrophil Count 4.7 X10^3/uL (2.0-7.7); Basophil# 0.03 X10^3/uL; Basophil% 0.4 % (0-1); Eosinophil# 0.04 X10^3/uL; Eosinophils% 0.5 % (0-5); Hemoglobin 14.9 g/dL (13.0-16.5); Lymphocyte # 1.86 X10^3/ul (0.83-4.51); Lymphocyte % 24.9 % (19-41); Mean Corp Hgb Conc 34.7 g/dL (32-36); Mean Corpuscular Hgb 32.5 pg (27.0-32.0); Mean Corpuscular Volume 93.9 fL (80-94); Mean Platelet Vol. 10.2 fl (6.2-12.0); Monocyte# 0.77 X10^3/uL; Monocyte% 10.3 % (0-10); NRBC Flagged by Analyzer 0 % (0-5); Neutrophil # 4.74 X10^3/uL (2.7-7.7); Neutrophil % 63.5 % (47-70); Platelet Count 213 K/mm3 (150-450); RBC Distribution Width CV 13.3 % (11.6-14.6); RBC Distribution Width SD 45.8 fl (35.1-43.9); Red Blood Count 4.58 M/mm3 (4.6-6.2); White Blood Count 7.5 K/mm3 (4.4-11.0)
[2021-08-09 10:41] LABS: Anion Gap 7 (5-15); BUN 24 mg/dL (7-18); BUN/Creat Ratio 17.4 RATIO (10-20); Calcium,Total 9.8 mg/dL (8.5-10.1); Chloride 107 mmol/L (98-107); Creatinine, Serum 1.38 mg/dL (0.70-1.30); EST Glomerular Filtration Rate 55 mL/min (>60); Est Glom Filt Rate - Afr Amer 66 mL/min (>60); Estimated Creatinine Clearance 54.57 ml/min; Glucose 115 mg/dL (74-106); Potassium 3.5 mmol/L (3.5-5.1); Sodium Level 140 mmol/L (136-145); Troponin-I HS (w/2H Reflex) 5 pg/mL (3.0-78.0)
[2021-08-09 11:20] VITALS: BP 126/81; PULSE 70; RESP 15; O2SAT 96
[2021-08-09 12:21] LABS: Reflex Troponin-HS? (from REC) Y
[2021-08-09 12:39] VITALS: BP 133/86; PULSE 66; RESP 17; O2SAT 97
[2021-08-09 12:55] LABS: Troponin-I HS 6 pg/mL (3.0-78.0)
[2021-08-09 13:51] VITALS: BP 124/82; PULSE 69; RESP 17; O2SAT 97
== END 2021-08-09 13:51 | disposition home or self-care (01) ==
PROVIDERS: Emergency Provider Emergency Medicine; PCP Family Medicine; Visit Provider Emergency Medicine
DX: R07.9 Chest pain, unspecified (principal); F03.90 Unspecified dementia, unspecified severity, without behavioral disturbance, psychotic disturbance, mood disturbance, and anxiety; N50.89 Other specified disorders of the male genital organs; I10 Essential (primary) hypertension; E03.9 Hypothyroidism, unspecified; N40.0 Benign prostatic hyperplasia without lower urinary tract symptoms; Z79.82 Long term (current) use of aspirin; Z79.890 Hormone replacement therapy; Z79.899 Other long term (current) drug therapy
CPT/HCPCS: 71045; 80048; 84484; 85025; 93005; 99284; A4216

== ENCOUNTER → 2021-08-16 | Outpatient (CLI) | payer MEDICARE, OTHER, SELFPAY ==
--- NOTE | 2021-08-16 10:58 | STRESSREP ---
Stress Test Report Date: 08-16-2021 Procedure: Exercise tolerance test Indications: Chest pain Consent: Per the patient Procedure: The patient exercised on a Pola protocol for 9 minutes completing stage III achieving a peak heart rate of 146 bpm (96% predicted maximal heart rate) with a peak blood pressure 188/70 mmHg and a peak MET capacity of approximately 10 sinus bradycardia MET's. The baseline ECG demonstrated sinus bradycardia. The peak exercise ECG demonstrated no obvious ECG changes. There was an isolated PVC during recovery. The functional capacity was considered good. The patient had no complaint of chest discomfort during exercise or recovery. The examination was discontinued secondary to dyspnea. Impression: 1. Technically adequate (percent predicted maximal heart rate greater than 85%) exercise tolerance test 2. Peak exercise ECG with with no obvious ECG change 3. There was an isolated PVC during recovery This note was generated with [employer]ation software. It may contain incorrect words, spelling, and punctuation that were not noted in checking the note before signing.
== END | disposition home or self-care (01) ==
LOC: CVS 09:09
PROVIDERS: PCP Family Medicine; Referring Provider Family Medicine; Visit Provider Family Medicine
DX: R07.9 Chest pain, unspecified (principal)
CPT/HCPCS: 93017

== ENCOUNTER → 2021-09-25 | Outpatient (CLI) | payer MEDICARE, OTHER, SELFPAY ==
[2021-09-25 09:53] LABS: Absolute Lymphocyte Count 1.77 X10^3/uL (0.83-4.51); Absolute Neutrophil Count 3.5 X10^3/uL (2.0-7.7); Basophil# 0.02 X10^3/uL; Basophil% 0.3 % (0-1); Eosinophil# 0.07 X10^3/uL; Eosinophils% 1.1 % (0-5); Hematocrit 42.4 % (40-54); Hemoglobin 14.3 g/dL (13.0-16.5); Lymphocyte # 1.77 X10^3/ul (0.83-4.51); Lymphocyte % 28.6 % (19-41); Mean Corp Hgb Conc 33.7 g/dL (32-36); Mean Corpuscular Hgb 32.4 pg (27.0-32.0); Mean Corpuscular Volume 96.1 fL (80-94); Mean Platelet Vol. 10.7 fl (6.2-12.0); Monocyte% 12.9 % (0-10); NRBC Flagged by Analyzer 0 % (0-5); Neutrophil # 3.52 X10^3/uL (2.7-7.7); Neutrophil % 56.9 % (47-70); Platelet Count 199 K/mm3 (150-450); RBC Distribution Width CV 13.6 % (11.6-14.6); Red Blood Count 4.41 M/mm3 (4.6-6.2); White Blood Count 6.2 K/mm3 (4.4-11.0)
[2021-09-25 10:46] LABS: AST(SGOT) 31 U/L (15-37); Alanine Aminotransfer ALT/SGPT 39 U/L (16-61); Albumin, Serum 3.5 g/dL (3.2-5.0); Alkaline Phosphatase 61 U/L (45-117); Anion Gap 9 (5-15); BUN 24 mg/dL (7-18); Calcium,Total 9.2 mg/dL (8.5-10.1); Chloride 105 mmol/L (98-107); Creatinine, Serum 1.33 mg/dL (0.70-1.30); EST Glomerular Filtration Rate 57 mL/min (>60); Est Glom Filt Rate - Afr Amer 69 mL/min (>60); Globulin 3.5 g/dL (2.2-4.2); Glucose 95 mg/dL (74-106); Potassium 3.6 mmol/L (3.5-5.1); Sodium Level 139 mmol/L (136-145)
== END | disposition home or self-care (01) ==
LOC: MTLAB 08:49
PROVIDERS: PCP Family Medicine; Referring Provider Internal Medicine Rheumatology; Visit Provider Internal Medicine Rheumatology
DX: L40.59 Other psoriatic arthropathy (principal); F03.90 Unspecified dementia, unspecified severity, without behavioral disturbance, psychotic disturbance, mood disturbance, and anxiety; K50.90 Crohn's disease, unspecified, without complications; M19.041 Primary osteoarthritis, right hand; L40.8 Other psoriasis; I12.9 Hypertensive chronic kidney disease with stage 1 through stage 4 chronic kidney disease, or unspecified chronic kidney disease; N18.9 Chronic kidney disease, unspecified; E03.9 Hypothyroidism, unspecified; E78.5 Hyperlipidemia, unspecified; K21.9 Gastro-esophageal reflux disease without esophagitis; Z79.899 Other long term (current) drug therapy
CPT/HCPCS: 36415; 80053; 85025

== ENCOUNTER → 2021-11-01 | Outpatient (CLI) | payer MEDICARE, OTHER, SELFPAY ==
[2021-11-01 10:03] LABS: Absolute Lymphocyte Count 1.87 X10^3/uL (0.83-4.51); Basophil# 0.04 X10^3/uL; Basophil% 0.6 % (0-1); Eosinophil# 0.13 X10^3/uL; Eosinophils% 1.9 % (0-5); Hematocrit 40.5 % (40-54); Hemoglobin 13.6 g/dL (13.0-16.5); Lymphocyte # 1.87 X10^3/ul (0.83-4.51); Lymphocyte % 27.7 % (19-41); Mean Corp Hgb Conc 33.6 g/dL (32-36); Mean Corpuscular Hgb 33.1 pg (27.0-32.0); Mean Corpuscular Volume 98.5 fL (80-94); Mean Platelet Vol. 10.6 fl (6.2-12.0); Monocyte# 0.71 X10^3/uL; Monocyte% 10.5 % (0-10); NRBC Flagged by Analyzer 0 % (0-5); Neutrophil # 3.97 X10^3/uL (2.7-7.7); Platelet Count 183 K/mm3 (150-450); RBC Distribution Width CV 14.6 % (11.6-14.6); RBC Distribution Width SD 52.7 fl (35.1-43.9); Red Blood Count 4.11 M/mm3 (4.6-6.2); White Blood Count 6.7 K/mm3 (4.4-11.0)
[2021-11-01 10:16] LABS: ALB/GLOB Ratio 1.1 RATIO (0.9-2.4); AST(SGOT) 27 U/L (15-37); Alanine Aminotransfer ALT/SGPT 33 U/L (16-61); Albumin, Serum 3.5 g/dL (3.2-5.0); Alkaline Phosphatase 57 U/L (45-117); Anion Gap 3 (5-15); BUN 18 mg/dL (7-18); BUN/Creat Ratio 13.8 RATIO (10-20); Calcium,Total 9.4 mg/dL (8.5-10.1); Chloride 112 mmol/L (98-107); EST Glomerular Filtration Rate 58 mL/min (>60); Est Glom Filt Rate - Afr Amer 71 mL/min (>60); Globulin 3.2 g/dL (2.2-4.2); Glucose 97 mg/dL (74-106); Potassium 3.9 mmol/L (3.5-5.1); Protein, Total 6.7 g/dL (6.4-8.2); Sodium Level 140 mmol/L (136-145)
== END | disposition home or self-care (01) ==
LOC: MTLAB 08:49
PROVIDERS: PCP Family Medicine; Referring Provider Internal Medicine Rheumatology; Visit Provider Internal Medicine Rheumatology
DX: L40.59 Other psoriatic arthropathy (principal); K50.90 Crohn's disease, unspecified, without complications; M19.041 Primary osteoarthritis, right hand; L40.8 Other psoriasis; I12.9 Hypertensive chronic kidney disease with stage 1 through stage 4 chronic kidney disease, or unspecified chronic kidney disease; N18.9 Chronic kidney disease, unspecified; E03.9 Hypothyroidism, unspecified; E78.5 Hyperlipidemia, unspecified; K21.9 Gastro-esophageal reflux disease without esophagitis; Z79.899 Other long term (current) drug therapy
CPT/HCPCS: 36415; 80053; 85025

== ENCOUNTER → 2021-12-26 | Outpatient (CLI) | payer MEDICARE, OTHER, SELFPAY ==
[2021-12-26 10:12] LABS: Absolute Lymphocyte Count 1.69 X10^3/uL (0.83-4.51); Absolute Neutrophil Count 3.4 X10^3/uL (2.0-7.7); Basophil# 0.03 X10^3/uL; Basophil% 0.5 % (0-1); Eosinophil# 0.06 X10^3/uL; Hematocrit 42.3 % (40-54); Hemoglobin 14.4 g/dL (13.0-16.5); Lymphocyte # 1.69 X10^3/ul (0.83-4.51); Lymphocyte % 29.5 % (19-41); Mean Corpuscular Hgb 34.2 pg (27.0-32.0); Mean Corpuscular Volume 100.5 fL (80-94); Mean Platelet Vol. 10.7 fl (6.2-12.0); Monocyte# 0.57 X10^3/uL; Monocyte% 9.9 % (0-10); NRBC Flagged by Analyzer 0 % (0-5); Neutrophil # 3.36 X10^3/uL (2.7-7.7); Neutrophil % 58.8 % (47-70); Platelet Count 185 K/mm3 (150-450); RBC Distribution Width CV 14.1 % (11.6-14.6); RBC Distribution Width SD 52.8 fl (35.1-43.9); Red Blood Count 4.21 M/mm3 (4.6-6.2); White Blood Count 5.7 K/mm3 (4.4-11.0)
[2021-12-26 10:51] LABS: AST(SGOT) 27 U/L (15-37); Alanine Aminotransfer ALT/SGPT 34 U/L (16-61); Albumin, Serum 3.6 g/dL (3.2-5.0); Alkaline Phosphatase 57 U/L (45-117); Anion Gap 3 (5-15); BUN 16 mg/dL (7-18); BUN/Creat Ratio 13.9 RATIO (10-20); Calcium,Total 9.5 mg/dL (8.5-10.1); Chloride 109 mmol/L (98-107); Creatinine, Serum 1.15 mg/dL (0.70-1.30); EST Glomerular Filtration Rate 67 mL/min (>60); Est Glom Filt Rate - Afr Amer 81 mL/min (>60); Globulin 3.5 g/dL (2.2-4.2); Glucose 93 mg/dL (74-106); Protein, Total 7.1 g/dL (6.4-8.2); Sodium Level 141 mmol/L (136-145)
== END | disposition home or self-care (01) ==
LOC: MTLAB 09:07
PROVIDERS: PCP Family Medicine; Referring Provider Internal Medicine Rheumatology; Visit Provider Internal Medicine Rheumatology
DX: L40.59 Other psoriatic arthropathy (principal); F03.90 Unspecified dementia, unspecified severity, without behavioral disturbance, psychotic disturbance, mood disturbance, and anxiety; K50.90 Crohn's disease, unspecified, without complications; M19.041 Primary osteoarthritis, right hand; L40.8 Other psoriasis; I12.9 Hypertensive chronic kidney disease with stage 1 through stage 4 chronic kidney disease, or unspecified chronic kidney disease; N18.9 Chronic kidney disease, unspecified; E03.9 Hypothyroidism, unspecified; E78.5 Hyperlipidemia, unspecified; H93.13 Tinnitus, bilateral; K21.9 Gastro-esophageal reflux disease without esophagitis; N52.9 Male erectile dysfunction, unspecified; I34.1 Nonrheumatic mitral (valve) prolapse; N40.0 Benign prostatic hyperplasia without lower urinary tract symptoms; Z79.899 Other long term (current) drug therapy
CPT/HCPCS: 36415; 80053; 85025

== ENCOUNTER → 2022-03-05 | Outpatient (CLI) | payer MEDICARE, OTHER, SELFPAY ==
[2022-03-05 10:10] LABS: Absolute Lymphocyte Count 1.43 X10^3/uL (0.83-4.51); Absolute Neutrophil Count 3.4 X10^3/uL (2.0-7.7); Basophil# 0.03 X10^3/uL; Basophil% 0.5 % (0-1); Eosinophil# 0.12 X10^3/uL; Eosinophils% 2.1 % (0-5); Hematocrit 42.6 % (40-54); Hemoglobin 14.8 g/dL (13.0-16.5); Lymphocyte # 1.43 X10^3/ul (0.83-4.51); Lymphocyte % 25.5 % (19-41); Mean Corp Hgb Conc 34.7 g/dL (32-36); Mean Corpuscular Hgb 34.5 pg (27.0-32.0); Mean Corpuscular Volume 99.3 fL (80-94); Monocyte# 0.65 X10^3/uL; Monocyte% 11.6 % (0-10); NRBC Flagged by Analyzer 0 % (0-5); Neutrophil # 3.35 X10^3/uL (2.7-7.7); Neutrophil % 59.9 % (47-70); Platelet Count 185 K/mm3 (150-450); RBC Distribution Width CV 14.1 % (11.6-14.6); RBC Distribution Width SD 51.3 fl (35.1-43.9); Red Blood Count 4.29 M/mm3 (4.6-6.2); White Blood Count 5.6 K/mm3 (4.4-11.0)
[2022-03-05 10:22] LABS: ALB/GLOB Ratio 1.2 RATIO (0.9-2.4); AST(SGOT) 32 U/L (15-37); Alanine Aminotransfer ALT/SGPT 43 U/L (16-61); Albumin, Serum 3.6 g/dL (3.2-5.0); Alkaline Phosphatase 63 U/L (45-117); Anion Gap 7 (5-15); BUN 17 mg/dL (7-18); BUN/Creat Ratio 14.4 RATIO (10-20); Calcium,Total 9.3 mg/dL (8.5-10.1); Chloride 108 mmol/L (98-107); Creatinine, Serum 1.18 mg/dL (0.70-1.30); EST Glomerular Filtration Rate 65 mL/min (>60); Est Glom Filt Rate - Afr Amer 79 mL/min (>60); Globulin 3.1 g/dL (2.2-4.2); Glucose 100 mg/dL (74-106); Potassium 4.1 mmol/L (3.5-5.1); Protein, Total 6.7 g/dL (6.4-8.2); Sodium Level 141 mmol/L (136-145)
== END | disposition home or self-care (01) ==
LOC: MTLAB 08:04
PROVIDERS: PCP Family Medicine; Referring Provider Internal Medicine Rheumatology; Visit Provider Internal Medicine Rheumatology
DX: L40.59 Other psoriatic arthropathy (principal); K50.90 Crohn's disease, unspecified, without complications; M19.041 Primary osteoarthritis, right hand; L40.8 Other psoriasis; I12.9 Hypertensive chronic kidney disease with stage 1 through stage 4 chronic kidney disease, or unspecified chronic kidney disease; N18.9 Chronic kidney disease, unspecified; E03.9 Hypothyroidism, unspecified; E78.5 Hyperlipidemia, unspecified
CPT/HCPCS: 36415; 80053; 85025

== ENCOUNTER → 2022-05-02 | Outpatient (CLI) | payer MEDICARE, OTHER, SELFPAY ==
[2022-05-02 12:23] LABS: Absolute Lymphocyte Count 2.09 X10^3/uL (0.83-4.51); Absolute Neutrophil Count 3.4 X10^3/uL (2.0-7.7); Basophil# 0.04 X10^3/uL; Basophil% 0.6 % (0-1); Eosinophil# 0.11 X10^3/uL; Eosinophils% 1.7 % (0-5); Hematocrit 40.9 % (40-54); Hemoglobin 14.3 g/dL (13.0-16.5); Lymphocyte # 2.09 X10^3/ul (0.83-4.51); Lymphocyte % 32.9 % (19-41); Mean Corpuscular Hgb 34.4 pg (27.0-32.0); Mean Corpuscular Volume 98.3 fL (80-94); Mean Platelet Vol. 10.9 fl (6.2-12.0); Monocyte# 0.58 X10^3/uL; Monocyte% 9.1 % (0-10); NRBC Flagged by Analyzer 0 % (0-5); Neutrophil # 3.44 X10^3/uL (2.7-7.7); Neutrophil % 54.3 % (47-70); Platelet Count 199 K/mm3 (150-450); RBC Distribution Width CV 14.2 % (11.6-14.6); RBC Distribution Width SD 51.4 fl (35.1-43.9); Red Blood Count 4.16 M/mm3 (4.6-6.2); White Blood Count 6.4 K/mm3 (4.4-11.0)
[2022-05-02 12:53] LABS: ALB/GLOB Ratio 1.1 RATIO (0.9-2.4); AST(SGOT) 35 U/L (15-37); Alanine Aminotransfer ALT/SGPT 44 U/L (16-61); Albumin, Serum 3.7 g/dL (3.2-5.0); Alkaline Phosphatase 63 U/L (45-117); Anion Gap 7 (5-15); BUN 17 mg/dL (7-18); BUN/Creat Ratio 13.4 RATIO (10-20); Calcium,Total 9.4 mg/dL (8.5-10.1); Chloride 108 mmol/L (98-107); Creatinine, Serum 1.27 mg/dL (0.70-1.30); EST Glomerular Filtration Rate 60 mL/min (>60); Est Glom Filt Rate - Afr Amer 72 mL/min (>60); Globulin 3.5 g/dL (2.2-4.2); Glucose 90 mg/dL (74-106); Potassium 3.8 mmol/L (3.5-5.1); Protein, Total 7.2 g/dL (6.4-8.2); Sodium Level 142 mmol/L (136-145)
== END | disposition home or self-care (01) ==
LOC: MTLAB 10:21
PROVIDERS: PCP Family Medicine; Referring Provider Internal Medicine Rheumatology; Visit Provider Internal Medicine Rheumatology
DX: L40.59 Other psoriatic arthropathy (principal); F03.90 Unspecified dementia, unspecified severity, without behavioral disturbance, psychotic disturbance, mood disturbance, and anxiety; K50.90 Crohn's disease, unspecified, without complications; M19.041 Primary osteoarthritis, right hand; L40.8 Other psoriasis; I12.9 Hypertensive chronic kidney disease with stage 1 through stage 4 chronic kidney disease, or unspecified chronic kidney disease; N18.9 Chronic kidney disease, unspecified; E03.9 Hypothyroidism, unspecified; E78.5 Hyperlipidemia, unspecified; H93.13 Tinnitus, bilateral; K21.9 Gastro-esophageal reflux disease without esophagitis; N52.9 Male erectile dysfunction, unspecified; Z79.899 Other long term (current) drug therapy
CPT/HCPCS: 36415; 80053; 85025

== ENCOUNTER → 2022-06-26 | Outpatient (CLI) | payer MEDICARE, OTHER, SELFPAY ==
[2022-06-26 12:08] LABS: Absolute Lymphocyte Count 1.78 X10^3/uL (0.83-4.51); Absolute Neutrophil Count 3.7 X10^3/uL (2.0-7.7); Basophil# 0.06 X10^3/uL; Basophil% 0.9 % (0-1); Eosinophil# 0.07 X10^3/uL; Eosinophils% 1.1 % (0-5); Hemoglobin 13.8 g/dL (13.0-16.5); Lymphocyte # 1.78 X10^3/ul (0.83-4.51); Lymphocyte % 27.8 % (19-41); Mean Corp Hgb Conc 33.7 g/dL (32-36); Mean Corpuscular Hgb 34.5 pg (27.0-32.0); Mean Corpuscular Volume 102.5 fL (80-94); Mean Platelet Vol. 10.6 fl (6.2-12.0); Monocyte# 0.78 X10^3/uL; Monocyte% 12.2 % (0-10); NRBC Flagged by Analyzer 0 % (0-5); Neutrophil # 3.69 X10^3/uL (2.7-7.7); Neutrophil % 57.7 % (47-70); Platelet Count 184 K/mm3 (150-450); RBC Distribution Width CV 14.2 % (11.6-14.6); RBC Distribution Width SD 53.3 fl (35.1-43.9); White Blood Count 6.4 K/mm3 (4.4-11.0)
[2022-06-26 12:23] LABS: ALB/GLOB Ratio 1.1 RATIO (0.9-2.4); AST(SGOT) 38 U/L (15-37); Alanine Aminotransfer ALT/SGPT 47 U/L (16-61); Albumin, Serum 3.4 g/dL (3.2-5.0); Alkaline Phosphatase 63 U/L (45-117); Anion Gap 0 (5-15); BUN 16 mg/dL (7-18); BUN/Creat Ratio 12.9 RATIO (10-20); Chloride 111 mmol/L (98-107); Creatinine, Serum 1.24 mg/dL (0.70-1.30); EST Glomerular Filtration Rate 61 mL/min (>60); Est Glom Filt Rate - Afr Amer 74 mL/min (>60); Globulin 3.2 g/dL (2.2-4.2); Glucose 88 mg/dL (74-106); Potassium 4.2 mmol/L (3.5-5.1); Protein, Total 6.6 g/dL (6.4-8.2); Sodium Level 140 mmol/L (136-145)
== END | disposition home or self-care (01) ==
LOC: MTLAB 10:37
PROVIDERS: PCP Family Medicine; Referring Provider Internal Medicine Rheumatology; Visit Provider Internal Medicine Rheumatology
DX: L40.59 Other psoriatic arthropathy (principal); Z79.899 Other long term (current) drug therapy
CPT/HCPCS: 36415; 80053; 85025

== ENCOUNTER → 2022-07-24 | Outpatient (CLI) | payer MEDICARE, OTHER, SELFPAY ==
[2022-07-24 13:01] LABS: Absolute Lymphocyte Count 1.68 X10^3/uL (0.83-4.51); Absolute Neutrophil Count 2.9 X10^3/uL (2.0-7.7); Basophil# 0.02 X10^3/uL; Basophil% 0.4 % (0-1); Eosinophil# 0.11 X10^3/uL; Hematocrit 40.5 % (40-54); Hemoglobin 13.9 g/dL (13.0-16.5); Lymphocyte # 1.68 X10^3/ul (0.83-4.51); Lymphocyte % 30.8 % (19-41); Mean Corp Hgb Conc 34.3 g/dL (32-36); Mean Corpuscular Hgb 34.5 pg (27.0-32.0); Mean Corpuscular Volume 100.5 fL (80-94); Mean Platelet Vol. 11.4 fl (6.2-12.0); Monocyte# 0.73 X10^3/uL; Monocyte% 13.4 % (0-10); NRBC Flagged by Analyzer 0 % (0-5); Neutrophil # 2.89 X10^3/uL (2.7-7.7); Platelet Count 204 K/mm3 (150-450); RBC Distribution Width CV 13.9 % (11.6-14.6); RBC Distribution Width SD 51.1 fl (35.1-43.9); Red Blood Count 4.03 M/mm3 (4.6-6.2); White Blood Count 5.5 K/mm3 (4.4-11.0)
[2022-07-24 13:51] LABS: AST(SGOT) 44 U/L (15-37); Alanine Aminotransfer ALT/SGPT 56 U/L (16-61); Albumin, Serum 3.5 g/dL (3.2-5.0); Alkaline Phosphatase 63 U/L (45-117); Anion Gap 4 (5-15); BUN 18 mg/dL (7-18); BUN/Creat Ratio 12.9 RATIO (10-20); Calcium,Total 9.1 mg/dL (8.5-10.1); Chloride 109 mmol/L (98-107); Creatinine, Serum 1.39 mg/dL (0.70-1.30); EST Glomerular Filtration Rate 54 mL/min (>60); Est Glom Filt Rate - Afr Amer 65 mL/min (>60); Globulin 3.4 g/dL (2.2-4.2); Glucose 122 mg/dL (74-106); Potassium 3.8 mmol/L (3.5-5.1); Protein, Total 6.9 g/dL (6.4-8.2); Sodium Level 138 mmol/L (136-145)
== END | disposition home or self-care (01) ==
LOC: MTLAB 09:42
PROVIDERS: PCP Family Medicine; Referring Provider Internal Medicine Rheumatology; Visit Provider Internal Medicine Rheumatology
DX: L40.59 Other psoriatic arthropathy (principal); Z79.899 Other long term (current) drug therapy; M19.041 Primary osteoarthritis, right hand
CPT/HCPCS: 36415; 80053; 85025

== ENCOUNTER → 2022-08-03 | Outpatient (CLI) | payer MEDICARE, OTHER, SELFPAY ==
--- NOTE | 2022-08-03 08:47 | US_ITS ---
EXAM: US ABDOMEN LIMITED, RIGHT UPPER QUADRANT CLINICAL INDICATION: ELEVATED LIVER ENZYMES TECHNIQUE: Real-time ultrasound of the right upper quadrant with image documentation. COMPARISON: No relevant prior studies available. FINDINGS: LIVER: Normal. There is normal echotexture. No focal hepatic lesion. No intrahepatic biliary ductal dilation. GALLBLADDER: Normal. No shadowing gallstone. No gallbladder wall thickening is demonstrated. No pericholecystic fluid. Negative sonographic Thakkar''s sign. COMMON BILE DUCT: Unremarkable as visualized. The proximal common bile duct is within normal limits for the patient''s age. PANCREAS: Unremarkable as visualized. No focal abnormality is demonstrated in the pancreas. No pancreatic ductal dilatation. RIGHT KIDNEY: 17 mm solid appearing right renal mass. 2. 12 mm right renal cysts. There is no hydronephrosis. No shadowing calculus. US/Abdomen Limited IMPRESSION: 1. Normal-appearing liver. 2. No gallbladder abnormality. 3. The solid 17 mm right renal lesion. Recommend follow-up CT or MRI with contrast for further evaluation. Electronically Signed: Den Colunga MD at 16:56 EDT ,
== END | disposition home or self-care (01) ==
LOC: US 08:46
PROVIDERS: PCP Family Medicine; Referring Provider Internal Medicine Rheumatology; Visit Provider Internal Medicine Rheumatology
DX: L40.59 Other psoriatic arthropathy (principal); K50.90 Crohn's disease, unspecified, without complications; M19.041 Primary osteoarthritis, right hand; L40.8 Other psoriasis; Z79.899 Other long term (current) drug therapy
CPT/HCPCS: 76705

== ENCOUNTER 2022-08-11 10:04 | Emergency (ER) | payer MEDICARE, OTHER, SELFPAY ==
[2022-08-11 10:05] VITALS: BP 132/85; PULSE 55; RESP 16; TEMP 35.9; O2SAT 99; BMI 27.7
--- NOTE | 2022-08-11 10:35 | EKG12_ITS ---
Test Reason : syncope Blood Pressure : / mmHG Vent. Rate : 052 BPM Atrial Rate : 052 BPM P-R Int : 174 ms QRS Dur : 104 ms QT Int : 426 ms P-R-T Axes : 043 -24 013 degrees QTc Int : 396 ms Sinus bradycardia Minimal voltage criteria for LVH, may be normal variant ( R in aVL ) Borderline ECG Confirmed by MUNIR TIRADO, MAE ([id number]), pictures editor [facility] ([id number]) on 08/13/2022 11:25:51 A M Referred By: Angeline Confirmed By:ALMA DELIA AMARAL MD
[2022-08-11] MEDS: 0.9% Normal Saline 1,000 ML 1000 ML IV (10:42)
[2022-08-11 10:48] LABS: Absolute Lymphocyte Count 1.88 X10^3/uL (0.83-4.51); Absolute Neutrophil Count 2.8 X10^3/uL (2.0-7.7); Basophil# 0.03 X10^3/uL; Basophil% 0.5 % (0-1); Eosinophil# 0.09 X10^3/uL; Eosinophils% 1.6 % (0-5); Hemoglobin 13.7 g/dL (13.0-16.5); Lymphocyte # 1.88 X10^3/ul (0.83-4.51); Lymphocyte % 33.8 % (19-41); Mean Corp Hgb Conc 33.4 g/dL (32-36); Mean Corpuscular Hgb 34.3 pg (27.0-32.0); Mean Corpuscular Volume 102.5 fL (80-94); Monocyte# 0.75 X10^3/uL; Monocyte% 13.5 % (0-10); NRBC Flagged by Analyzer 0 % (0-5); Neutrophil % 50.4 % (47-70); Platelet Count 186 K/mm3 (150-450); RBC Distribution Width CV 13.9 % (11.6-14.6); RBC Distribution Width SD 52.4 fl (35.1-43.9); White Blood Count 5.6 K/mm3 (4.4-11.0)
--- NOTE | 2022-08-11 10:50 | RAD_ITS ---
STUDY: X-RAY CHEST REASON FOR EXAM: Male, 67 years old. SOB TECHNIQUE: PA and lateral views of the chest. COMPARISON: August 09, 2021 FINDINGS: The lungs are clear and expanded. There is no demonstrated pleural abnormality. Normal size heart. Normal mediastinum and martita. Normal visualized pulmonary arteries. Normal visualized aortic arch and descending thoracic aorta. Normal visualized thoracic spine. Normal visualized ribs, clavicles, and shoulders. There is no demonstrated abnormality of the visualized soft tissue structures of the upper abdomen. RAD/Chest PA and Lateral IMPRESSION: Normal x-ray examination of the chest. Electronically Signed: Cole Dumont MD at 11:23 EDT ,
[2022-08-11 11:03] LABS: Anion Gap 7 (5-15); BUN 23 mg/dL (7-18); BUN/Creat Ratio 15.4 RATIO (10-20); Calcium,Total 9.4 mg/dL (8.5-10.1); Chloride 108 mmol/L (98-107); Creatinine, Serum 1.49 mg/dL (0.70-1.30); EST Glomerular Filtration Rate 50 mL/min (>60); Est Glom Filt Rate - Afr Amer 60 mL/min (>60); Estimated Creatinine Clearance 49.84 ml/min; Glucose 115 mg/dL (74-106); Potassium 4.3 mmol/L (3.5-5.1); Sodium Level 139 mmol/L (136-145); Troponin-I HS 6 pg/mL (3.0-78.0)
--- NOTE | 2022-08-11 11:22 | EX.ED.DYSGE1 ---
HPI History of Present Illness Chief Complaint: Syncope Informant: patient and spouse/S.O. Narrative Narrative: Here with spouse for evaluation of fatigue with occasional lightheaded symptoms since yesterday. He was doing mulching yard yesterday. Denied any chest pains. He was drinking fluids. There is no vomiting or diarrhea. Mild dyspnea when he exerts himself. No chest tightness. No urinary symptoms. History of mild dementia. History psoriatic arthritis on immunosuppressants. History of hypertension on metoprolol and reports nifedipine was added at some point. Unclear exactly when. Denies any bloody stools. [facility] Medical History BPH (benign prostatic hyperplasia) Chest pain Dementia Hypertension Hypothyroidism Mass of right kidney Psoriatic arthritis Home Medications levothyroxine 100 mcg tablet 100 mcg PO DAILY THYROID 05/17/15 [History Last Taken 04/28/20] metoprolol tartrate 25 mg tablet 12.5 mg PO BID BP 05/17/15 [History Last Taken 04/28/20] omeprazole 20 mg capsule,delayed release 20 mg PO DAILY GERD 05/17/15 [History Last Taken 04/27/20] trazodone 100 mg tablet 100 mg PO QHS SLEEP 05/17/15 [History Last Taken 04/26/20] losartan 50 mg tablet 25 mg PO DAILY BP 12/28/19 [History Last Taken Unknown] aspirin 81 mg tablet,delayed release 81 mg PO DAILY@0800 HEART HEALTH 04/28/20 [History Last Taken 04/28/20] atorvastatin 10 mg tablet 10 mg PO DAILY GERD 04/28/20 [History Last Taken 04/28/20] hydrochlorothiazide 12.5 mg capsule 12.5 mg PO DAILY BP 04/28/20 [History Last Taken 04/28/20] memantine 28 mg capsule sprinkle,extended release 24hr 28 mg PO DAILY MEMORY 04/28/20 [History Last Taken 04/28/20] multivitamin 1 tab PO DAILY SUPPLEMENT 04/28/20 [History Last Taken 04/27/20] apremilast 30 mg tablet (Otezla) 30 mg PO DAILY 08/09/21 [History Last Taken Unknown] infliximab-abda 100 mg intravenous solution (Renflexis) 500 mg IV 08/09/21 [History Last Taken Unknown] Allergy/AdvReac Type Severity Reaction Status Date / Time codeine Allergy It Verified 08/11/22 10:07 affected my breathing Family History Mother Diabetes Heart disease CAD (coronary artery disease) Kidney disease Thyroid disorder Father Cancer Heart disease Hypertension Surgical History H/O left inguinal hernia repair H/O partial thyroidectomy history of left index finger Inguinal hernia of right side without obstruction or gangrene S/P tonsillectomy and adenoidectomy Social History Smoking Status: Never smoker alcohol intake: never ROS ROS ED Constitutional Constitutional ED: Reports other Details: Fatigue ; Denies chills, fever(s) or sweats Eyes Eyes: Denies change in vision ENT ENT ED: Denies dysphagia or sore throat Cardiovascular Cardiovascular: Reports other Details: Light headed ; Denies chest pain, leg edema, palpitations or racing heartbeat Respiratory/Chest Respiratory/Chest: Denies cough, dyspnea or dyspnea on exertion Gastrointestinal Gastrointestinal: Denies abdominal pain, diarrhea, nausea or vomiting Genitourinary Genitourinary ED: Denies dysuria, hematuria or urinary frequency Musculoskeletal Musculoskeletal: Denies back pain, extremity pain or neck pain Integumentary Denies rash or wounds Neurologic Neurologic: Denies headache(s), paresthesias or weakness EXAM Physical Exam Const Vital Signs: 08/11/22 10:05 08/11/22 10:27 08/11/22 11:44 Temperature 96.6 F L Temperature Source Temporal Pulse Rate 55 L 53 L Respiratory Rate 16 12 Respiratory Effort Normal Non-Labored Blood Pressure 132/85 H 120/68 Blood Pressure Mean 100 85 Pulse Ox 99 97 Oxygen Delivery Method Room Air Room Air 08/11/22 12:50 Temperature Temperature Source Pulse Rate 52 L Respiratory Rate 20 H Respiratory Effort Blood Pressure 116/74 Blood Pressure Mean Pulse Ox 97 Oxygen Delivery Method Positive well nourished and well developed General Appearance ED: well developed and NAD HEENT Reports moist mucous membranes normocephalic and atraumatic Eyes PERRL, EOMs intact bilaterally and conjunctivae normal General Eye ED: Yes normal appearance of both eyes Neck no lymphadenopathy and supple General: Negative for tenderness Chest Wall Chest: Negative for tenderness Resp normal respiratory effort and normal air movement Effort and Inspection: symmetric chest movement; Negative for respiratory distress Cardio regular rate, regular rhythm and no murmurs Peripheral Pulses: pulses 2+ throughout GI normal to inspection, nondistended, normoactive bowel sounds and non-tender Palpation: Negative for guarding or rebound tenderness present Back/Spine no CVA tenderness and no thoracic nor lumbar tenderness Extremity normal to inspection General Extremety ED: Negative for edema or tenderness General Extremity: Negative for edema Neuro oriented x3, CN's II-XII intact bilaterally and no sensory deficits noted Sensorium / Orientation: awake and alert Skin no rashes or lesions noted and no wounds MDM MDM MDM Narrative Medical decision making narrative: Interventions / MDM: Differential diagnosis: Dehydration, electrolyte abnormalities, cardiac dysrhythmia Diagnosis considered but do not suspect: N/A My EKG interpretation: Sinus rate of 52, no ST or T wave changes no signs of heart block. Imaging independently reviewed and interpreted by myself: Chest x-ray: no acute process External documents reviewed: N/A Test considered but not ordered:N/A ED course: Patient near syncope, clinical dehydration on exam. IV established given fluids. Labs creatinine 1.4, ranges previous creatinines 1.2-1.3. Normal sodium potassium hemoglobin 13.7. EKG sinus rhythm rate of 52 he is on metoprolol and nifedipine. There is no signs of heart block. Troponin was negative. Clinically feeling better is able to ambulate no return of symptoms. Reporting fatigue unclear when his nifedipine was started, discussed both metoprolol and nifedipine can cause fatigue symptoms. 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 Vuong. He will call the office for discussion of this medications due to fatigue symptoms. Return precautions. All questions were answered. Re-evaluation: stable Disposition discussed with patient/family/significant other: Patient and significant other Case discussed with consulting clinician: N/A Lab Data Attestation: I reviewed the patient's lab results. Labs: Laboratory Results - last 24 hr 08/11/22 08/11/22 10:20 10:20 WBC 5.6 RBC 4.00 L Hgb 13.7 Hct 41.0 MCV 102.5 H MCH 34.3 H MCHC 33.4 RDW Std Deviation 52.4 H RDW Coeff of Kelli 13.9 Plt Count 186 MPV 11.0 Immature Gran % (Auto) 0.200 Neut % (Auto) 50.4 Lymph % (Auto) 33.8 Wilbarger % (Auto) 13.5 H Eos % (Auto) 1.6 Baso % (Auto) 0.5 Absolute Neuts (auto) 2.8 Absolute Lymphs (auto) 1.88 Nucleated RBC % 0 Sodium 139 Potassium 4.3 Chloride 108 H Carbon Dioxide 24.0 Anion Gap 7 BUN 23 H Creatinine 1.49 H Estim Creat Clear Calc 49.84 Est GFR (MDRD) Af Amer 60 Est GFR (MDRD) Non-Af 50 L BUN/Creatinine Ratio 15.4 Glucose 115 H Calcium 9.4 Troponin I High Sens 6 Radiography Diagnostic Testing: Clinical Impression(s) from Imaging Studies Chest X-Ray 08/11/22 10:50 IMPRESSION: Normal x-ray examination of the chest. Electronically Signed: Cole Dumont MD at 11:23 EDT Reading Location ID and State: [address] [place] [address] , Service support , Discharge Plan Triage Chief Complaint: Syncope ED Provider: Chas Black Dx/Rx/DC Orders Clinical Impression: Dehydration, Acute on chronic renal insufficiency, Postural dizziness with near syncope, Bradycardia, sinus Instructions: Dehydration, ED Near-Fainting, Uncertain Cause Prescriptions: No Action levothyroxine 100 MCG tablet 100 mcg PO DAILY Label Comments: THYROID trazodone 100 MG tablet 100 mg PO QHS Label Comments: SLEEP omeprazole 20 MG capsule 20 mg PO DAILY Label Comments: HEART BURN metoprolol tartrate 25 MG tablet 12.5 mg PO BID Label Comments: BLOOD PRESSURE losartan 50 MG tablet 25 mg PO DAILY multivitamin 1 TABLET tablet 1 tab PO DAILY atorvastatin 10 MG tablet 10 mg PO DAILY aspirin 81 MG tablet 81 mg PO DAILY@0800 hydrochlorothiazide 12.5 MG capsule 12.5 mg PO DAILY memantine 28 MG capsule,sprinkle,ER 24hr 28 mg PO DAILY Otezla 30 mg Tablet 30 mg PO DAILY Renflexis 100 mg Recon Soln 500 mg IV Rx Instructions: EVERY 8 WEEKS Primary Care Provider: Kemar Arroyo Referrals: Kemar Arroyo MD [Primary Care Provider] - Activity Restrictions/Additional Instructions: Discussed with your heart doctor, Dr. Vuong about your metoprolol and your nifedipine as both can cause fatigue. Your heart rate in the 50s on EKG with no signs of heart block. You know to have dehydration your creatinine is 1.49 today previously between 1.2 and 1.3. Continue oral fluids have your blood work rechecked by your doctor. Return if worsening symptoms. Disposition Disposition: Home, Self Care Discharge Date/Time: 08/11/22 12:51
[2022-08-11 11:44] VITALS: BP 120/68; PULSE 53; RESP 12; O2SAT 97
[2022-08-11 12:50] VITALS: BP 116/74; PULSE 52; RESP 20; O2SAT 97
== END 2022-08-11 12:51 | disposition home or self-care (01) ==
PROVIDERS: Emergency Provider Emergency Medicine; PCP Family Medicine; Visit Provider Emergency Medicine
DX: E86.0 Dehydration (principal); L40.50 Arthropathic psoriasis, unspecified; R55 Syncope and collapse; R00.1 Bradycardia, unspecified; I12.9 Hypertensive chronic kidney disease with stage 1 through stage 4 chronic kidney disease, or unspecified chronic kidney disease; N18.9 Chronic kidney disease, unspecified; E03.9 Hypothyroidism, unspecified; Z79.82 Long term (current) use of aspirin; Z79.890 Hormone replacement therapy; Z79.899 Other long term (current) drug therapy
CPT/HCPCS: 71046; 80048; 84484; 85025; 93005; 96360; 99284; J7030; A4216

== ENCOUNTER → 2022-08-20 | Outpatient (CLI) | payer MEDICARE, OTHER, SELFPAY ==
[2022-08-20 15:57] LABS: ALB/GLOB Ratio 1.1 RATIO (0.9-2.4); AST(SGOT) 32 U/L (15-37); Alanine Aminotransfer ALT/SGPT 39 U/L (16-61); Albumin, Serum 3.5 g/dL (3.2-5.0); Alkaline Phosphatase 44 U/L (45-117); Anion Gap 5 (5-15); BUN 17 mg/dL (7-18); BUN/Creat Ratio 13.4 RATIO (10-20); Calcium,Total 9.3 mg/dL (8.5-10.1); Chloride 106 mmol/L (98-107); Creatinine, Serum 1.27 mg/dL (0.70-1.30); EST Glomerular Filtration Rate 60 mL/min (>60); Est Glom Filt Rate - Afr Amer 72 mL/min (>60); Globulin 3.3 g/dL (2.2-4.2); Glucose 85 mg/dL (74-106); Potassium 4.6 mmol/L (3.5-5.1); Protein, Total 6.8 g/dL (6.4-8.2); Sodium Level 138 mmol/L (136-145)
== END | disposition home or self-care (01) ==
LOC: MTLAB 11:54
PROVIDERS: PCP Family Medicine; Referring Provider Internal Medicine Rheumatology; Visit Provider Internal Medicine Rheumatology
DX: L40.59 Other psoriatic arthropathy (principal); Z79.899 Other long term (current) drug therapy; M19.041 Primary osteoarthritis, right hand
CPT/HCPCS: 36415; 80053

== ENCOUNTER → 2022-10-17 | Outpatient (CLI) | payer MEDICARE, OTHER, SELFPAY ==
[2022-10-17 10:12] LABS: Absolute Lymphocyte Count 1.63 X10^3/uL (0.83-4.51); Absolute Neutrophil Count 3.4 X10^3/uL (2.0-7.7); Basophil# 0.03 X10^3/uL; Basophil% 0.5 % (0-1); Eosinophil# 0.12 X10^3/uL; Hematocrit 38.4 % (40-54); Hemoglobin 12.6 g/dL (13.0-16.5); Lymphocyte # 1.63 X10^3/ul (0.83-4.51); Mean Corp Hgb Conc 32.8 g/dL (32-36); Mean Corpuscular Hgb 34.1 pg (27.0-32.0); Mean Corpuscular Volume 103.8 fL (80-94); Mean Platelet Vol. 11.4 fl (6.2-12.0); Monocyte# 0.82 X10^3/uL; Monocyte% 13.6 % (0-10); NRBC Flagged by Analyzer 0 % (0-5); Neutrophil # 3.42 X10^3/uL (2.7-7.7); Neutrophil % 56.6 % (47-70); Platelet Count 183 K/mm3 (150-450); RBC Distribution Width CV 13.9 % (11.6-14.6); RBC Distribution Width SD 52.7 fl (35.1-43.9)
[2022-10-17 10:49] LABS: ALB/GLOB Ratio 1.1 RATIO (0.9-2.4); AST(SGOT) 32 U/L (15-37); Alanine Aminotransfer ALT/SGPT 34 U/L (16-61); Albumin, Serum 3.5 g/dL (3.2-5.0); Alkaline Phosphatase 53 U/L (45-117); Anion Gap 6 (5-15); BUN 18 mg/dL (7-18); BUN/Creat Ratio 14.8 RATIO (10-20); Chloride 108 mmol/L (98-107); Creatinine, Serum 1.22 mg/dL (0.70-1.30); EST Glomerular Filtration Rate 63 mL/min (>60); Est Glom Filt Rate - Afr Amer 76 mL/min (>60); Globulin 3.1 g/dL (2.2-4.2); Glucose 93 mg/dL (74-106); Potassium 4.2 mmol/L (3.5-5.1); Protein, Total 6.6 g/dL (6.4-8.2); Sodium Level 141 mmol/L (136-145)
== END | disposition home or self-care (01) ==
LOC: MTLAB 08:37
PROVIDERS: PCP Family Medicine; Referring Provider Internal Medicine Rheumatology; Visit Provider Internal Medicine Rheumatology
DX: L40.59 Other psoriatic arthropathy (principal); L40.8 Other psoriasis; M19.041 Primary osteoarthritis, right hand; Z79.899 Other long term (current) drug therapy
CPT/HCPCS: 36415; 80053; 85025

== ENCOUNTER → 2022-12-14 | Outpatient (CLI) | payer MEDICARE, OTHER, SELFPAY ==
[2022-12-14 12:05] LABS: Absolute Lymphocyte Count 2.11 X10^3/uL (0.83-4.51); Absolute Neutrophil Count 3.6 X10^3/uL (2.0-7.7); Basophil# 0.04 X10^3/uL; Basophil% 0.6 % (0-1); Eosinophil# 0.08 X10^3/uL; Eosinophils% 1.2 % (0-5); Hematocrit 40.5 % (40-54); Hemoglobin 13.3 g/dL (13.0-16.5); Lymphocyte # 2.11 X10^3/ul (0.83-4.51); Lymphocyte % 32.6 % (19-41); Mean Corp Hgb Conc 32.8 g/dL (32-36); Mean Corpuscular Hgb 32.8 pg (27.0-32.0); Mean Corpuscular Volume 99.8 fL (80-94); Monocyte# 0.67 X10^3/uL; Monocyte% 10.3 % (0-10); NRBC Flagged by Analyzer 0 % (0-5); Neutrophil # 3.57 X10^3/uL (2.7-7.7); Neutrophil % 55.1 % (47-70); Platelet Count 167 K/mm3 (150-450); RBC Distribution Width CV 13.1 % (11.6-14.6); Red Blood Count 4.06 M/mm3 (4.6-6.2); White Blood Count 6.5 K/mm3 (4.4-11.0)
[2022-12-14 12:32] LABS: AST(SGOT) 22 U/L (15-37); Alanine Aminotransfer ALT/SGPT 28 U/L (16-61); Albumin, Serum 3.5 g/dL (3.2-5.0); Alkaline Phosphatase 71 U/L (45-117); Anion Gap 2 (5-15); BUN 17 mg/dL (7-18); BUN/Creat Ratio 11.8 RATIO (10-20); Calcium,Total 9.3 mg/dL (8.5-10.1); Chloride 109 mmol/L (98-107); Creatinine, Serum 1.44 mg/dL (0.70-1.30); EST Glomerular Filtration Rate 52 mL/min (>60); Est Glom Filt Rate - Afr Amer 63 mL/min (>60); Globulin 3.4 g/dL (2.2-4.2); Glucose 94 mg/dL (74-106); Potassium 4.3 mmol/L (3.5-5.1); Protein, Total 6.9 g/dL (6.4-8.2); Sodium Level 139 mmol/L (136-145)
== END | disposition home or self-care (01) ==
LOC: MTLAB 10:23
PROVIDERS: PCP Family Medicine; Referring Provider Internal Medicine Rheumatology; Visit Provider Internal Medicine Rheumatology
DX: L40.59 Other psoriatic arthropathy (principal); M19.041 Primary osteoarthritis, right hand; Z79.899 Other long term (current) drug therapy
CPT/HCPCS: 36415; 80053; 85025

== ENCOUNTER → 2023-01-14 | Outpatient (CLI) | payer MEDICARE, OTHER, SELFPAY ==
[2023-01-14 12:45] LABS: ALB/GLOB Ratio 0.9 RATIO (0.9-2.4); AST(SGOT) 24 U/L (15-37); Alanine Aminotransfer ALT/SGPT 30 U/L (16-61); Albumin, Serum 3.4 g/dL (3.2-5.0); Alkaline Phosphatase 62 U/L (45-117); Anion Gap 3 (5-15); BUN 16 mg/dL (7-18); Calcium,Total 9.3 mg/dL (8.5-10.1); Chloride 109 mmol/L (98-107); Creatinine, Serum 1.23 mg/dL (0.70-1.30); EST Glomerular Filtration Rate 62 mL/min (>60); Est Glom Filt Rate - Afr Amer 75 mL/min (>60); Globulin 3.7 g/dL (2.2-4.2); Glucose 90 mg/dL (74-106); Potassium 4.2 mmol/L (3.5-5.1); Protein, Total 7.1 g/dL (6.4-8.2); Sodium Level 141 mmol/L (136-145)
== END | disposition home or self-care (01) ==
PROVIDERS: PCP Family Medicine; Referring Provider Internal Medicine Rheumatology; Visit Provider Internal Medicine Rheumatology
DX: L40.59 Other psoriatic arthropathy (principal); K50.90 Crohn's disease, unspecified, without complications; L40.8 Other psoriasis; N18.9 Chronic kidney disease, unspecified; Z79.899 Other long term (current) drug therapy
CPT/HCPCS: 36415; 80053

== ENCOUNTER → 2023-03-11 | Outpatient (CLI) | payer MEDICARE, OTHER, SELFPAY ==
[2023-03-11 12:08] LABS: Absolute Lymphocyte Count 1.78 X10^3/uL (0.83-4.51); Absolute Neutrophil Count 3.6 X10^3/uL (2.0-7.7); Basophil# 0.03 X10^3/uL; Basophil% 0.5 % (0-1); Eosinophil# 0.06 X10^3/uL; Hematocrit 43.6 % (40-54); Hemoglobin 14.1 g/dL (13.0-16.5); Lymphocyte # 1.78 X10^3/ul (0.83-4.51); Lymphocyte % 29.4 % (19-41); Mean Corp Hgb Conc 32.3 g/dL (32-36); Mean Corpuscular Hgb 31.8 pg (27.0-32.0); Mean Corpuscular Volume 98.4 fL (80-94); Mean Platelet Vol. 10.8 fl (6.2-12.0); Monocyte# 0.57 X10^3/uL; Monocyte% 9.4 % (0-10); NRBC Flagged by Analyzer 0 % (0-5); Neutrophil % 59.4 % (47-70); Platelet Count 193 K/mm3 (150-450); RBC Distribution Width CV 14.5 % (11.6-14.6); RBC Distribution Width SD 52.1 fl (35.1-43.9); Red Blood Count 4.43 M/mm3 (4.6-6.2); White Blood Count 6.1 K/mm3 (4.4-11.0)
[2023-03-11 12:24] LABS: AST(SGOT) 33 U/L (15-37); Alanine Aminotransfer ALT/SGPT 38 U/L (16-61); Albumin, Serum 3.6 g/dL (3.2-5.0); Alkaline Phosphatase 62 U/L (45-117); Anion Gap 4 (5-15); BUN 15 mg/dL (7-18); BUN/Creat Ratio 12.5 RATIO (10-20); Calcium,Total 9.1 mg/dL (8.5-10.1); Chloride 108 mmol/L (98-107); EST Glomerular Filtration Rate 64 mL/min (>60); Est Glom Filt Rate - Afr Amer 77 mL/min (>60); Globulin 3.5 g/dL (2.2-4.2); Glucose 89 mg/dL (74-106); Potassium 4.3 mmol/L (3.5-5.1); Protein, Total 7.1 g/dL (6.4-8.2); Sodium Level 141 mmol/L (136-145)
== END | disposition home or self-care (01) ==
PROVIDERS: PCP Family Medicine; Referring Provider Internal Medicine Rheumatology; Visit Provider Internal Medicine Rheumatology
DX: L40.59 Other psoriatic arthropathy (principal); K50.90 Crohn's disease, unspecified, without complications; L40.8 Other psoriasis; N18.9 Chronic kidney disease, unspecified; Z79.899 Other long term (current) drug therapy
CPT/HCPCS: 36415; 80053; 85025

== ENCOUNTER → 2023-06-05 | Outpatient (CLI) | payer MEDICARE, OTHER, SELFPAY ==
[2023-06-05 10:33] LABS: Absolute Neutrophil Count 3.4 X10^3/uL (2.0-7.7); Basophil# 0.03 X10^3/uL; Basophil% 0.5 % (0-1); Eosinophil# 0.11 X10^3/uL; Eosinophils% 1.7 % (0-5); Hematocrit 40.2 % (40-54); Hemoglobin 13.2 g/dL (13.0-16.5); Lymphocyte % 30.9 % (19-41); Mean Corp Hgb Conc 32.8 g/dL (32-36); Mean Corpuscular Hgb 33.2 pg (27.0-32.0); Mean Platelet Vol. 11.1 fl (6.2-12.0); Monocyte# 0.94 X10^3/uL; Monocyte% 14.5 % (0-10); NRBC Flagged by Analyzer 0 % (0-5); Neutrophil # 3.37 X10^3/uL (2.7-7.7); Neutrophil % 51.9 % (47-70); Platelet Count 191 K/mm3 (150-450); RBC Distribution Width CV 13.9 % (11.6-14.6); RBC Distribution Width SD 51.8 fl (35.1-43.9); Red Blood Count 3.98 M/mm3 (4.6-6.2); White Blood Count 6.5 K/mm3 (4.4-11.0)
[2023-06-05 11:10] LABS: ALB/GLOB Ratio 1.1 RATIO (0.9-2.4); AST(SGOT) 30 U/L (15-37); Alanine Aminotransfer ALT/SGPT 42 U/L (16-61); Albumin, Serum 3.4 g/dL (3.2-5.0); Alkaline Phosphatase 64 U/L (45-117); Anion Gap 3 (5-15); BUN 21 mg/dL (7-18); BUN/Creat Ratio 16.9 RATIO (10-20); Calcium,Total 8.9 mg/dL (8.5-10.1); Chloride 112 mmol/L (98-107); Creatinine, Serum 1.24 mg/dL (0.70-1.30); EST Glomerular Filtration Rate 61 mL/min (>60); Est Glom Filt Rate - Afr Amer 74 mL/min (>60); Globulin 3.2 g/dL (2.2-4.2); Glucose 94 mg/dL (74-106); Protein, Total 6.6 g/dL (6.4-8.2); Sodium Level 143 mmol/L (136-145)
== END | disposition home or self-care (01) ==
PROVIDERS: PCP Family Medicine; Referring Provider Internal Medicine Rheumatology; Visit Provider Internal Medicine Rheumatology
DX: L40.59 Other psoriatic arthropathy (principal); M19.041 Primary osteoarthritis, right hand; Z79.899 Other long term (current) drug therapy
CPT/HCPCS: 36415; 80053; 85025

== ENCOUNTER → 2023-09-04 | Outpatient (CLI) | payer MEDICARE, OTHER, SELFPAY ==
[2023-09-04 17:34] LABS: Absolute Lymphocyte Count 2.29 X10^3/uL (0.83-4.51); Absolute Neutrophil Count 2.7 X10^3/uL (2.0-7.7); Basophil# 0.04 X10^3/uL; Basophil% 0.7 % (0-1); Eosinophil# 0.17 X10^3/uL; Eosinophils% 2.9 % (0-5); Hematocrit 36.7 % (40-54); Hemoglobin 12.3 g/dL (13.0-16.5); Lymphocyte # 2.29 X10^3/ul (0.83-4.51); Lymphocyte % 38.8 % (19-41); Mean Corp Hgb Conc 33.5 g/dL (32-36); Mean Corpuscular Hgb 33.8 pg (27.0-32.0); Mean Corpuscular Volume 100.8 fL (80-94); Mean Platelet Vol. 10.6 fl (6.2-12.0); Monocyte# 0.74 X10^3/uL; Monocyte% 12.5 % (0-10); NRBC Flagged by Analyzer 0 % (0-5); Neutrophil # 2.65 X10^3/uL (2.7-7.7); Neutrophil % 44.9 % (47-70); Platelet Count 194 K/mm3 (150-450); RBC Distribution Width CV 14.2 % (11.6-14.6); RBC Distribution Width SD 52.7 fl (35.1-43.9); Red Blood Count 3.64 M/mm3 (4.6-6.2); White Blood Count 5.9 K/mm3 (4.4-11.0)
[2023-09-04 18:09] LABS: ALB/GLOB Ratio 1.1 RATIO (0.9-2.4); AST(SGOT) 42 U/L (15-37); Alanine Aminotransfer ALT/SGPT 48 U/L (16-61); Albumin, Serum 3.4 g/dL (3.2-5.0); Alkaline Phosphatase 72 U/L (45-117); Anion Gap 7 (5-15); BUN 27 mg/dL (7-18); BUN/Creat Ratio 21.6 RATIO (10-20); Chloride 110 mmol/L (98-107); Creatinine, Serum 1.25 mg/dL (0.70-1.30); EST Glomerular Filtration Rate 61 mL/min (>60); Est Glom Filt Rate - Afr Amer 73 mL/min (>60); Globulin 3.1 g/dL (2.2-4.2); Glucose 111 mg/dL (74-106); Potassium 3.9 mmol/L (3.5-5.1); Protein, Total 6.5 g/dL (6.4-8.2); Sodium Level 139 mmol/L (136-145)
== END | disposition home or self-care (01) ==
PROVIDERS: PCP Family Medicine; Referring Provider Internal Medicine Rheumatology; Visit Provider Internal Medicine Rheumatology
DX: L40.59 Other psoriatic arthropathy (principal); Z79.899 Other long term (current) drug therapy; M19.041 Primary osteoarthritis, right hand
CPT/HCPCS: 36415; 80053; 85025

== ENCOUNTER → 2023-11-05 | Outpatient (CLI) | payer MEDICARE, OTHER, SELFPAY ==
[2023-11-05 12:04] LABS: Absolute Lymphocyte Count 2.07 X10^3/uL (0.83-4.51); Absolute Neutrophil Count 4.1 X10^3/uL (2.0-7.7); Basophil# 0.04 X10^3/uL; Basophil% 0.6 % (0-1); Eosinophils% 1.4 % (0-5); Hematocrit 43.4 % (40-54); Hemoglobin 14.2 g/dL (13.0-16.5); Lymphocyte # 2.07 X10^3/ul (0.83-4.51); Lymphocyte % 29.6 % (19-41); Mean Corp Hgb Conc 32.7 g/dL (32-36); Mean Corpuscular Hgb 32.9 pg (27.0-32.0); Mean Corpuscular Volume 100.5 fL (80-94); Mean Platelet Vol. 11.4 fl (6.2-12.0); Monocyte# 0.71 X10^3/uL; Monocyte% 10.2 % (0-10); NRBC Flagged by Analyzer 0 % (0-5); Neutrophil # 4.06 X10^3/uL (2.7-7.7); Neutrophil % 58.1 % (47-70); Platelet Count 170 K/mm3 (150-450); RBC Distribution Width CV 12.9 % (11.6-14.6); RBC Distribution Width SD 47.8 fl (35.1-43.9); Red Blood Count 4.32 M/mm3 (4.6-6.2)
[2023-11-05 12:29] LABS: ALB/GLOB Ratio 0.9 RATIO (0.9-2.4); AST(SGOT) 28 U/L (15-37); Alanine Aminotransfer ALT/SGPT 33 U/L (16-61); Albumin, Serum 3.4 g/dL (3.2-5.0); Alkaline Phosphatase 60 U/L (45-117); Anion Gap 4 (5-15); BUN 20 mg/dL (7-18); BUN/Creat Ratio 13.8 RATIO (10-20); Calcium,Total 9.6 mg/dL (8.5-10.1); Chloride 108 mmol/L (98-107); Creatinine, Serum 1.45 mg/dL (0.70-1.30); EST Glomerular Filtration Rate 51 mL/min (>60); Est Glom Filt Rate - Afr Amer 62 mL/min (>60); Globulin 3.9 g/dL (2.2-4.2); Glucose 99 mg/dL (74-106); Potassium 4.8 mmol/L (3.5-5.1); Protein, Total 7.3 g/dL (6.4-8.2); Sodium Level 139 mmol/L (136-145)
== END | disposition home or self-care (01) ==
LOC: MTLAB 09:34
PROVIDERS: PCP Family Medicine; Referring Provider Internal Medicine Rheumatology; Visit Provider Internal Medicine Rheumatology
DX: L40.59 Other psoriatic arthropathy (principal); K50.90 Crohn's disease, unspecified, without complications; Z79.899 Other long term (current) drug therapy
CPT/HCPCS: 36415; 80053; 85025

== ENCOUNTER → 2023-12-03 | Outpatient (CLI) | payer MEDICARE, OTHER, SELFPAY ==
[2023-12-03 10:36] LABS: ALB/GLOB Ratio 0.9 RATIO (0.9-2.4); AST(SGOT) 30 U/L (15-37); Alanine Aminotransfer ALT/SGPT 34 U/L (16-61); Albumin, Serum 3.4 g/dL (3.2-5.0); Alkaline Phosphatase 76 U/L (45-117); Anion Gap 6 (5-15); BUN 19 mg/dL (7-18); BUN/Creat Ratio 14.2 RATIO (10-20); Calcium,Total 9.6 mg/dL (8.5-10.1); Chloride 108 mmol/L (98-107); Creatinine, Serum 1.34 mg/dL (0.70-1.30); EST Glomerular Filtration Rate 56 mL/min (>60); Est Glom Filt Rate - Afr Amer 68 mL/min (>60); Globulin 3.7 g/dL (2.2-4.2); Glucose 103 mg/dL (74-106); Potassium 4.2 mmol/L (3.5-5.1); Protein, Total 7.1 g/dL (6.4-8.2); Sodium Level 140 mmol/L (136-145)
== END | disposition home or self-care (01) ==
LOC: MTLAB 07:55
PROVIDERS: PCP Family Medicine; Referring Provider Internal Medicine Rheumatology; Visit Provider Internal Medicine Rheumatology
DX: L40.59 Other psoriatic arthropathy (principal); M19.041 Primary osteoarthritis, right hand; Z79.899 Other long term (current) drug therapy
CPT/HCPCS: 36415; 80053

== ENCOUNTER → 2024-01-28 | Outpatient (CLI) | payer MEDICARE, OTHER, SELFPAY ==
[2024-01-28 10:20] LABS: Absolute Lymphocyte Count 2.41 X10^3/uL (0.83-4.51); Absolute Neutrophil Count 3.9 X10^3/uL (2.0-7.7); Basophil# 0.04 X10^3/uL; Basophil% 0.6 % (0-1); Eosinophil# 0.13 X10^3/uL; Eosinophils% 1.8 % (0-5); Hematocrit 42.6 % (40-54); Hemoglobin 14.2 g/dL (13.0-16.5); Lymphocyte # 2.41 X10^3/ul (0.83-4.51); Lymphocyte % 33.6 % (19-41); Mean Corp Hgb Conc 33.3 g/dL (32-36); Mean Corpuscular Hgb 32.6 pg (27.0-32.0); Mean Corpuscular Volume 97.9 fL (80-94); Mean Platelet Vol. 10.8 fl (6.2-12.0); Monocyte# 0.72 X10^3/uL; NRBC Flagged by Analyzer 0 % (0-5); Neutrophil # 3.85 X10^3/uL (2.7-7.7); Neutrophil % 53.7 % (47-70); Platelet Count 197 K/mm3 (150-450); RBC Distribution Width CV 14.3 % (11.6-14.6); RBC Distribution Width SD 51.2 fl (35.1-43.9); Red Blood Count 4.35 M/mm3 (4.6-6.2); White Blood Count 7.2 K/mm3 (4.4-11.0)
[2024-01-28 10:50] LABS: AST(SGOT) 32 U/L (15-37); Alanine Aminotransfer ALT/SGPT 40 U/L (16-61); Albumin, Serum 3.5 g/dL (3.2-5.0); Alkaline Phosphatase 72 U/L (45-117); Anion Gap 4 (5-15); BUN 20 mg/dL (7-18); BUN/Creat Ratio 15.2 RATIO (10-20); Calcium,Total 9.5 mg/dL (8.5-10.1); Chloride 109 mmol/L (98-107); Creatinine, Serum 1.32 mg/dL (0.70-1.30); EST Glomerular Filtration Rate 57 mL/min (>60); Est Glom Filt Rate - Afr Amer 69 mL/min (>60); Globulin 3.5 g/dL (2.2-4.2); Glucose 97 mg/dL (74-106); Potassium 4.1 mmol/L (3.5-5.1); Sodium Level 140 mmol/L (136-145)
== END | disposition home or self-care (01) ==
LOC: MTLAB 08:50
PROVIDERS: PCP Family Medicine; Referring Provider Internal Medicine Rheumatology; Visit Provider Internal Medicine Rheumatology
DX: L40.59 Other psoriatic arthropathy (principal); M19.041 Primary osteoarthritis, right hand; Z79.899 Other long term (current) drug therapy
CPT/HCPCS: 36415; 80053; 85025

== ENCOUNTER → 2024-04-10 | Outpatient (CLI) | payer MEDICARE, OTHER, SELFPAY ==
[2024-04-10 10:32] LABS: Absolute Lymphocyte Count 2.27 X10^3/uL (0.83-4.51); Absolute Neutrophil Count 4.4 X10^3/uL (2.0-7.7); Basophil# 0.05 X10^3/uL; Basophil% 0.7 % (0-1); Eosinophil# 0.12 X10^3/uL; Eosinophils% 1.6 % (0-5); Hematocrit 42.4 % (40-54); Hemoglobin 14.3 g/dL (13.0-16.5); Lymphocyte # 2.27 X10^3/ul (0.83-4.51); Lymphocyte % 29.5 % (19-41); Mean Corp Hgb Conc 33.7 g/dL (32-36); Mean Corpuscular Hgb 34.5 pg (27.0-32.0); Mean Corpuscular Volume 102.2 fL (80-94); Mean Platelet Vol. 10.8 fl (6.2-12.0); Monocyte# 0.78 X10^3/uL; Monocyte% 10.1 % (0-10); NRBC Flagged by Analyzer 0 % (0-5); Neutrophil # 4.43 X10^3/uL (2.7-7.7); Neutrophil % 57.6 % (47-70); Platelet Count 193 K/mm3 (150-450); RBC Distribution Width CV 14.6 % (11.6-14.6); RBC Distribution Width SD 54.7 fl (35.1-43.9); Red Blood Count 4.15 M/mm3 (4.6-6.2); White Blood Count 7.7 K/mm3 (4.4-11.0)
[2024-04-10 10:43] LABS: AST(SGOT) 34 U/L (15-37); Alanine Aminotransfer ALT/SGPT 41 U/L (16-61); Albumin, Serum 3.6 g/dL (3.2-5.0); Alkaline Phosphatase 73 U/L (45-117); Anion Gap 3 (5-15); BUN 19 mg/dL (7-18); BUN/Creat Ratio 13.5 RATIO (10-20); Calcium,Total 9.5 mg/dL (8.5-10.1); Chloride 110 mmol/L (98-107); Creatinine, Serum 1.41 mg/dL (0.70-1.30); EST Glomerular Filtration Rate 53 mL/min (>60); Est Glom Filt Rate - Afr Amer 64 mL/min (>60); Globulin 3.5 g/dL (2.2-4.2); Glucose 96 mg/dL (74-106); Potassium 4.1 mmol/L (3.5-5.1); Protein, Total 7.1 g/dL (6.4-8.2); Sodium Level 140 mmol/L (136-145)
== END | disposition home or self-care (01) ==
LOC: MTLAB 09:01
PROVIDERS: PCP Family Medicine; Referring Provider Internal Medicine Rheumatology; Visit Provider Internal Medicine Rheumatology
DX: L40.59 Other psoriatic arthropathy (principal); M19.041 Primary osteoarthritis, right hand; Z79.899 Other long term (current) drug therapy
CPT/HCPCS: 36415; 80053; 85025

== ENCOUNTER → 2024-06-03 | Outpatient (CLI) | payer MEDICARE, OTHER, SELFPAY ==
[2024-06-03 12:39] LABS: Absolute Lymphocyte Count 2.06 X10^3/uL (0.83-4.51); Absolute Neutrophil Count 3.8 X10^3/uL (2.0-7.7); Basophil# 0.05 X10^3/uL; Basophil% 0.7 % (0-1); Eosinophil# 0.12 X10^3/uL; Eosinophils% 1.8 % (0-5); Hematocrit 41.3 % (40-54); Hemoglobin 14.2 g/dL (13.0-16.5); Lymphocyte # 2.06 X10^3/ul (0.83-4.51); Lymphocyte % 30.6 % (19-41); Mean Corp Hgb Conc 34.4 g/dL (32-36); Mean Corpuscular Volume 101.7 fL (80-94); Mean Platelet Vol. 10.8 fl (6.2-12.0); Monocyte% 10.4 % (0-10); NRBC Flagged by Analyzer 0 % (0-5); Neutrophil # 3.79 X10^3/uL (2.7-7.7); Neutrophil % 56.2 % (47-70); Platelet Count 211 K/mm3 (150-450); RBC Distribution Width CV 14.3 % (11.6-14.6); RBC Distribution Width SD 53.3 fl (35.1-43.9); Red Blood Count 4.06 M/mm3 (4.6-6.2); White Blood Count 6.7 K/mm3 (4.4-11.0)
[2024-06-03 12:56] LABS: ALB/GLOB Ratio 1.5 RATIO (0.9-2.4); AST(SGOT) 39 U/L (<=37); Alanine Aminotransfer ALT/SGPT 38 U/L (<=46); Albumin, Serum 4.2 g/dL (3.4-4.8); Alkaline Phosphatase 60 U/L (40-129); Anion Gap 12 (5-15); BUN 21 mg/dL (4-19); BUN/Creat Ratio 14.5 RATIO (10-20); Calcium,Total 9.7 mg/dL (7.6-11.0); Carbon Dioxide 23.9 mmol/L (21.0-32.0); Chloride 104 mmol/L (98-108); Creatinine, Serum 1.41 mg/dL (0.70-1.20); EST Glomerular Filtration Rate 54 (>60); Globulin 2.8 g/dL (2.2-4.2); Glucose 88 mg/dL (70-99); Potassium 4.2 mmol/L (3.3-5.1); Sodium Level 140 mmol/L (133-145); Total Bilirubin 0.72 mg/dL (0.00-1.30)
== END | disposition home or self-care (01) ==
LOC: MTLAB 10:14
PROVIDERS: PCP Family Medicine; Referring Provider Internal Medicine Rheumatology; Visit Provider Internal Medicine Rheumatology
DX: L40.59 Other psoriatic arthropathy (principal); M19.041 Primary osteoarthritis, right hand; Z79.899 Other long term (current) drug therapy
CPT/HCPCS: 36415; 80053; 85025

== ENCOUNTER → 2024-07-29 | Outpatient (CLI) | payer MEDICARE, OTHER, SELFPAY ==
[2024-07-29 10:39] LABS: Absolute Lymphocyte Count 1.61 X10^3/uL (0.83-4.51); Basophil# 0.03 X10^3/uL; Basophil% 0.5 % (0-1); Eosinophils% 1.6 % (0-5); Hematocrit 41.1 % (40-54); Lymphocyte # 1.61 X10^3/ul (0.83-4.51); Mean Corp Hgb Conc 34.1 g/dL (32-36); Mean Corpuscular Hgb 34.2 pg (27.0-32.0); Mean Corpuscular Volume 100.5 fL (80-94); Monocyte# 0.47 X10^3/uL; Monocyte% 7.6 % (0-10); NRBC Flagged by Analyzer 0 % (0-5); Neutrophil # 3.97 X10^3/uL (2.7-7.7); Neutrophil % 64.1 % (47-70); Platelet Count 189 K/mm3 (150-450); RBC Distribution Width CV 14.4 % (11.6-14.6); RBC Distribution Width SD 53.2 fl (35.1-43.9); Red Blood Count 4.09 M/mm3 (4.6-6.2); White Blood Count 6.2 K/mm3 (4.4-11.0)
[2024-07-29 12:29] LABS: ALB/GLOB Ratio 1.4 RATIO (0.9-2.4); AST(SGOT) 36 U/L (<=37); Alanine Aminotransfer ALT/SGPT 30 U/L (<=46); Alkaline Phosphatase 66 U/L (40-129); Anion Gap 11 (5-15); BUN 22 mg/dL (4-19); BUN/Creat Ratio 15.9 RATIO (10-20); Calcium,Total 9.5 mg/dL (7.6-11.0); Chloride 109 mmol/L (98-108); Creatinine, Serum 1.41 mg/dL (0.70-1.20); EST Glomerular Filtration Rate 53 (>60); Globulin 2.8 g/dL (2.2-4.2); Glucose 87 mg/dL (70-99); Potassium 4.3 mmol/L (3.3-5.1); Protein, Total 6.8 g/dL (5.9-8.4); Sodium Level 141 mmol/L (133-145)
== END | disposition home or self-care (01) ==
LOC: MTLAB 09:14
PROVIDERS: PCP Family Medicine; Referring Provider Internal Medicine Rheumatology; Visit Provider Internal Medicine Rheumatology
DX: L40.59 Other psoriatic arthropathy (principal); K50.90 Crohn's disease, unspecified, without complications; M19.041 Primary osteoarthritis, right hand; L40.8 Other psoriasis; Z79.899 Other long term (current) drug therapy
CPT/HCPCS: 36415; 80053; 85025

== ENCOUNTER → 2024-09-30 | Outpatient (CLI) | payer MEDICARE, OTHER, SELFPAY ==
[2024-09-30 11:00] LABS: Hematocrit 40.6 % (40-54); Hemoglobin 13.7 g/dL (13.0-16.5); Immature Granulocytes Count 0.010 X10^3/uL (0.0-0.0); Mean Corp Hgb Conc 33.7 g/dL (32-36); Mean Corpuscular Volume 101.2 fL (80-94); Mean Platelet Vol. 11.5 fl (6.2-12.0); NRBC Flagged by Analyzer 0 % (0-5); Platelet Count 193 K/mm3 (150-450); RBC Distribution Width CV 14.2 % (11.6-14.6); RBC Distribution Width SD 52.7 fl (35.1-43.9); Red Blood Count 4.01 M/mm3 (4.6-6.2); White Blood Count 5.7 K/mm3 (4.4-11.0)
[2024-09-30 12:44] LABS: AST(SGOT) 33 U/L (<=37); Alanine Aminotransfer ALT/SGPT 28 U/L (<=46); Albumin, Serum 4.0 g/dL (3.4-4.8); Alkaline Phosphatase 68 U/L (40-129); Anion Gap 11 (5-15); BUN 16 mg/dL (4-19); BUN/Creat Ratio 12.4 RATIO (10-20); Calcium,Total 9.5 mg/dL (7.6-11.0); Carbon Dioxide 22.7 mmol/L (21.0-32.0); Chloride 108 mmol/L (98-108); Globulin 2.5 g/dL (2.2-4.2); Glucose 100 mg/dL (70-99); Potassium 3.8 mmol/L (3.3-5.1)
== END | disposition home or self-care (01) ==
LOC: MTLAB 09:16
PROVIDERS: PCP Family Medicine; Referring Provider Internal Medicine Rheumatology; Visit Provider Internal Medicine Rheumatology
DX: L40.59 Other psoriatic arthropathy (principal); M19.041 Primary osteoarthritis, right hand; Z79.899 Other long term (current) drug therapy
CPT/HCPCS: 36415; 80053; 85025

== ENCOUNTER → 2024-12-23 | Outpatient (CLI) | payer MEDICARE, OTHER, SELFPAY ==
[2024-12-23 10:47] LABS: Hematocrit 39.7 % (40-54); Hemoglobin 13.6 g/dL (13.0-16.5); Immature Granulocytes Count 0.010 X10^3/uL (0.0-0.0); Mean Corp Hgb Conc 34.3 g/dL (32-36); Mean Corpuscular Volume 99.7 fL (80-94); Mean Platelet Vol. 11.1 fl (6.2-12.0); NRBC Flagged by Analyzer 0 % (0-5); Platelet Count 188 K/mm3 (150-450); RBC Distribution Width CV 14.0 % (11.6-14.6); RBC Distribution Width SD 50.5 fl (35.1-43.9); Red Blood Count 3.98 M/mm3 (4.6-6.2); White Blood Count 7.2 K/mm3 (4.4-11.0)
[2024-12-23 11:09] LABS: AST(SGOT) 35 U/L (<=37); Alanine Aminotransfer ALT/SGPT 32 U/L (<=46); Albumin, Serum 4.0 g/dL (3.4-4.8); Alkaline Phosphatase 69 U/L (40-129); Anion Gap 10 (5-15); BUN 17 mg/dL (4-19); BUN/Creat Ratio 12.9 RATIO (10-20); Calcium,Total 9.6 mg/dL (7.6-11.0); Carbon Dioxide 22.5 mmol/L (21.0-32.0); Chloride 107 mmol/L (98-108); Globulin 2.6 g/dL (2.2-4.2); Glucose 107 mg/dL (70-99); Potassium 4.0 mmol/L (3.3-5.1)
== END | disposition home or self-care (01) ==
LOC: MTLAB 09:11
PROVIDERS: PCP Family Medicine; Referring Provider Internal Medicine Rheumatology; Visit Provider Internal Medicine Rheumatology
DX: L40.59 Other psoriatic arthropathy (principal); Z79.899 Other long term (current) drug therapy
CPT/HCPCS: 36415; 80053; 85025

== ENCOUNTER → 2025-03-17 | Outpatient (CLI) | payer MEDICARE, OTHER, SELFPAY ==
[2025-03-17 12:20] LABS: Hematocrit 41.2 % (40-54); Hemoglobin 14.0 g/dL (13.0-16.5); Immature Granulocytes Count 0.080 X10^3/uL (0.0-0.0); Mean Corp Hgb Conc 34.0 g/dL (32-36); Mean Corpuscular Volume 99.5 fL (80-94); Mean Platelet Vol. 10.6 fl (6.2-12.0); NRBC Flagged by Analyzer 0 % (0-5); Platelet Count 291 K/mm3 (150-450); RBC Distribution Width CV 13.7 % (11.6-14.6); RBC Distribution Width SD 49.2 fl (35.1-43.9); Red Blood Count 4.14 M/mm3 (4.6-6.2); White Blood Count 11.3 K/mm3 (4.4-11.0)
[2025-03-17 12:55] LABS: AST(SGOT) 20 U/L (<=37); Alanine Aminotransfer ALT/SGPT 14 U/L (<=46); Albumin, Serum 3.6 g/dL (3.4-4.8); Alkaline Phosphatase 62 U/L (40-129); Anion Gap 12 (5-15); BUN 15 mg/dL (4-19); BUN/Creat Ratio 10.3 RATIO (10-20); Calcium,Total 10.0 mg/dL (7.6-11.0); Carbon Dioxide 23.2 mmol/L (21.0-32.0); Chloride 104 mmol/L (98-108); Globulin 2.9 g/dL (2.2-4.2); Glucose 110 mg/dL (70-99); Potassium 3.6 mmol/L (3.3-5.1)
== END | disposition home or self-care (01) ==
LOC: MTLAB 09:44
PROVIDERS: PCP Family Medicine; Referring Provider Internal Medicine Rheumatology; Visit Provider Internal Medicine Rheumatology
DX: L40.59 Other psoriatic arthropathy (principal); K50.90 Crohn's disease, unspecified, without complications; Z79.899 Other long term (current) drug therapy; L40.8 Other psoriasis
CPT/HCPCS: 36415; 80053; 85025